=== PATIENT | female | born 1960 | race Caucasian/White ===

== ENCOUNTER → 2020-03-29 15:48 | Outpatient (CLI) | payer OTHER, SELFPAY ==
[2020-03-29 17:04] LABS: COVID19 -Nasal RAPID Negative (Negative)
== END ==
PROVIDERS: Family Provider Internal Medicine; Visit Provider Physician Assistant
DX: Z11.59 Encounter for screening for other viral diseases (principal)
CPT/HCPCS: 87635

== ENCOUNTER → 2020-07-04 12:10 | Outpatient (CLI) | payer OTHER, SELFPAY ==
[2020-07-04 12:49] LABS: Hemoglobin 13.5 g/dL (12.0-16.0); Mean Corpuscular HGB Conc 33.7 % (30-36); Platelet Count 239 X10^3/uL (150-400); Red Blood Cell Count 4.34 X10^6/uL (4.0-5.2); Red Cell Distribution Width 13.1 % (11.6-14.8); White Blood Cell Count 5.2 X10^3/uL (4.5-11.0)
[2020-07-04 14:25] LABS: Alanine Aminotransferase 20 IU/L (<35); Albumin 4.3 g/dL (3.5-5.0); Albumin Globulin Ratio 1.7 (1.0-2.8); Alkaline Phosphatase 62 U/L (38-126); Aspartate Aminotransferase 19 IU/L (14-36); BUN Creatinine Ratio 22.2 (6-22); Bilirubin Total 0.2 mg/dL (0.2-1.3); Blood Urea Nitrogen 14 mg/dL (7-17); Calcium 9.6 mg/dL (8.4-10.2); Carbon Dioxide 27 mmol/L (22-32); Chloride 103 mmol/L (98-107); Cholesterol 158 mg/dL (140-199); Estimated Glomerular Filt Rate > 60.0 mL/min (>60); Globulin 2.6 g/dL (1.7-4.1); Glucose 120 mg/dL (70-100); HDL Cholesterol 65 mg/dL (40-60); HEMOLYSIS < 15 (0-50); LDL Cholesterol Calculated 53 mg/dL (<100); Potassium 4.1 mmol/L (3.4-5.1); Sodium 138 mmol/L (137-145); Total Protein 6.9 g/dL (6.3-8.2); Triglycerides 198 mg/dL (35-150)
[2020-07-04 14:51] LABS: Thyroid Stimulating Hormone 1.55 uIU/mL (0.47-4.68)
[2020-07-04 15:14] LABS: Vitamin B12 311 pg/mL (239-931)
[2020-07-04 16:21] LABS: Microalbumin Urine Random 1.1 mg/dL (0-1.6)
[2020-07-04 16:23] LABS: Creatinine Urine Random 140.2 mg/dL; Microalbumi Creatinin Ratio Ur 7.8 ug/mg CR (<30)
== END ==
PROVIDERS: Family Provider Internal Medicine; PCP Internal Medicine; Referring Provider Internal Medicine; Visit Provider Internal Medicine
DX: Z00.00 Encounter for general adult medical examination without abnormal findings (principal); E11.9 Type 2 diabetes mellitus without complications
CPT/HCPCS: 36415; 80053; 80061; 82043; 82570; 82607; 83036; 84443; 85027

== ENCOUNTER → 2020-11-24 13:22 | Outpatient (CLI) | payer OTHER, SELFPAY ==
[2020-11-24 14:09] LABS: Hematocrit 40.6 % (36-46); Hemoglobin 13.4 g/dL (12.0-16.0); Mean Corpuscular HGB Conc 33.1 % (30-36); Mean Corpuscular Hemoglobin 30.8 PG (26-34); Mean Corpuscular Volume 93.2 fL (80-100); Platelet Count 266 X10^3/uL (150-400); Red Blood Cell Count 4.36 X10^6/uL (4.0-5.2); Red Cell Distribution Width 13.6 % (11.6-14.8); White Blood Cell Count 5.6 X10^3/uL (4.5-11.0)
[2020-11-24 14:28] LABS: BUN Creatinine Ratio 21.4 (6-22); Blood Urea Nitrogen 12 mg/dL (7-17); Carbon Dioxide 28 mmol/L (22-32); Chloride 104 mmol/L (98-107); Estimated Glomerular Filt Rate > 60.0 mL/min (>60); Glucose 125 mg/dL (70-100); HEMOLYSIS < 15 (0-50); Potassium 3.9 mmol/L (3.4-5.1); Sodium 140 mmol/L (137-145)
[2020-11-24 14:29] LABS: Hemoglobin A1C% w Est Avg Glu 5.5 % (4.0-6.0)
[2020-11-24 15:16] LABS: Vitamin B12 410 pg/mL (239-931)
[2020-11-27 12:44] LABS: Calcitonin <2.0 pg/mL (0.0-5.0)
== END ==
PROVIDERS: Family Provider Internal Medicine; PCP Internal Medicine; Referring Provider Internal Medicine; Visit Provider Internal Medicine
DX: E11.9 Type 2 diabetes mellitus without complications (principal)
CPT/HCPCS: 36415; 80048; 82308; 82607; 83036; 85027

== ENCOUNTER → 2021-01-20 11:41 | Outpatient (CLI) | payer OTHER, SELFPAY ==
[2021-01-20 13:07] LABS: Add Manual Diff / Slide Review NO; Basophils Absolute Auto 100 /uL (0-100); Basophils Percent Auto 1.2 % (0-2); Eosinophils Absolute Auto 100 /uL (0-450); Eosinophils Percent Auto 1.9 % (2-4); Hematocrit 39.8 % (36-46); Hemoglobin 13.2 g/dL (12.0-16.0); Lymphocytes Absolute Auto 1700 /uL (1100-4500); Lymphocytes Percent Auto 33.4 % (25-40); Mean Corpuscular HGB Conc 33.1 % (30-36); Mean Corpuscular Hemoglobin 30.9 PG (26-34); Mean Corpuscular Volume 93.3 fL (80-100); Monocytes Absolute Auto 400 /uL (0-900); Monocytes Percent Auto 6.9 % (3-14); Neutrophils Absolute Auto 2900 /uL (1500-7000); Neutrophils Percent Auto 56.6 % (50-75); Platelet Count 266 X10^3/uL (150-400); Red Blood Cell Count 4.27 X10^6/uL (4.0-5.2); Red Cell Distribution Width 13.1 % (11.6-14.8); White Blood Cell Count 5.1 X10^3/uL (4.5-11.0)
[2021-01-20 13:16] LABS: HEMOLYSIS < 15 (0-50); Iron 78 ug/dL (37-170)
[2021-01-20 13:22] LABS: Alanine Aminotransferase 26 IU/L (<35); Albumin 4.3 g/dL (3.5-5.0); Albumin Globulin Ratio 1.7 (1.0-2.8); Alkaline Phosphatase 54 U/L (38-126); Aspartate Aminotransferase 24 IU/L (14-36); BUN Creatinine Ratio 18.2 (6-22); Bilirubin Total 0.3 mg/dL (0.2-1.3); Blood Urea Nitrogen 10 mg/dL (7-17); Calcium 9.3 mg/dL (8.4-10.2); Carbon Dioxide 29 mmol/L (22-32); Chloride 104 mmol/L (98-107); Cholesterol 151 mg/dL (140-199); Estimated Glomerular Filt Rate > 60.0 mL/min (>60); Globulin 2.5 g/dL (1.7-4.1); Glucose 103 mg/dL (70-100); HDL Cholesterol 50 mg/dL (40-60); HEMOLYSIS < 15 (0-50); LDL Cholesterol Calculated 64 mg/dL (<100); Sodium 140 mmol/L (137-145); Total Protein 6.8 g/dL (6.3-8.2); Triglycerides 186 mg/dL (35-150)
[2021-01-20 13:24] LABS: Hemoglobin A1C% w Est Avg Glu 5.4 % (4.0-6.0)
[2021-01-20 13:32] LABS: Vitamin D 25 Hydroxy (D3) 39.4 ng/mL (30.0-100.0)
[2021-01-20 13:33] LABS: Percent Iron Saturation 26 % (15-50); Total Iron Binding Capacity 298 ug/dL (265-497); Transferrin 246 mg/dL (206-381)
[2021-01-20 13:34] LABS: Follicle Stimulating Hormone 27.6 mIU/mL
[2021-01-20 14:14] LABS: Vitamin B12 404 pg/mL (239-931)
== END ==
PROVIDERS: Family Provider Internal Medicine; PCP Internal Medicine; Referring Provider Internal Medicine; Visit Provider Internal Medicine
DX: F32.9 Major depressive disorder, single episode, unspecified (principal); E11.9 Type 2 diabetes mellitus without complications; Z78.0 Asymptomatic menopausal state
CPT/HCPCS: 36415; 80053; 80061; 82306; 82607; 83001; 83036; 83540; 83550; 85025

== ENCOUNTER → 2021-03-21 11:30 | Outpatient (CLI) | payer OTHER, SELFPAY ==
--- NOTE | 2021-03-21 11:31 | DI.MRI.S_ITS ---
BREAST MRI OF BOTH BREASTS: 03/21/2021 CLINICAL: Dense breasts. PROCEDURE: MR BREAST BI WO/W CON INDICATIONS: Dense breast TECHNIQUE: The patient was placed prone in a dedicated breast imaging coil. Precontrast axial STIR and 3D FLASH without fat saturation sequences were obtained. Both before and after bolus injection of contrast, sequential 1-minute axial 3D FLASH with fat saturation sequences for 3 time points, with subtraction images and maximum intensity projections (MIP's) generated. Delayed sagittal FLASH images with fat saturation were also obtained. Contrast: 20 cc ProHance IV contrast. Computer-aided detection, including computer algorithm analysis of MRI image data for lesion detection and characterization, pharmacokinetic analysis, with further physician review for interpretation, was performed. COMPARISON: Outside Facility, MG, MM TOMOSYNTHESIS DIAGNOSTIC BI, 02/29/2020, 11:43. Outside Facility, RG, US RIGHT BREAST, 06/15/2019, 10:45. Outside Facility, MG, MM TOMOSYNTHESIS DIAGNOSTIC BI, 06/15/2019, 10:06. Outside Facility, RG, US RIGHT BREAST, 06/06/2017, 9:48. Outside Facility, MG, MM TOMOSYNTHESIS DIAGNOSTIC BI, 06/06/2017, 9:15. Formerly [facility], MR, BILATERAL BREAST W FINDINGS: Image quality: Excellent. There is minimal background parenchymal enhancement. Right breast: No mass or suspicious enhancement. A few T2 hyperintense cysts. Left breast: No mass or suspicious enhancement. A few T2 hyperintense cysts. Miscellaneous: No enlarged lymph nodes. IMPRESSION: NEGATIVE No mass or suspicious enhancement. A few small T2 hyperintense cysts. BIRADS 2 Patient is due for screening mammogram. (last mammogram 02/29/2020). COMMENT: The imaging literature indicates that a negative contrast breast MRI examination has a high sensitivity and a moderate specificity for detecting and excluding invasive carcinomas to a detection threshold of 3-5 mm; nonetheless, appropriate clinical and mammographic follow-up are recommended. MRI is not sensitive for detecting DCIS (ductal carcinoma in situ) and may not detect large invasive neoplasms that show only minimal enhancement such as mucinous carcinoma. If there are suspicious calcifications or clinically worrisome palpable masses, then biopsy should still be considered. Invasive neoplasms can be hidden by co-existent and benign enhancement caused by mastitis, hormone therapy effects, radiation therapy, , and recent biopsy or surgery. False positive examinations can occur in a number of circumstances, including breasts that have recently been subject to invasive procedures and those that contain atypical ductal hyperplasia, hormonally stimulated glandular tissue, fat necrosis, or radial scars. Dictated by: Duncan Hassan M.D. on 03/21/2021 at 16:34 This exam was interpreted at Station ID: [id number]. Electronically Signed By: Duncan Hassan M.D. slc/:03/21/2021 17:07:10 Entry: - 03/22/2021 12:47:16 copy to: [facility] ACR BI-RADS Category 1: Negative [id number]
== END ==
PROVIDERS: Family Provider Internal Medicine; PCP Internal Medicine; Referring Provider Obstetrics & Gynecology; Visit Provider Obstetrics & Gynecology
DX: R92.2 Inconclusive mammogram (principal)
CPT/HCPCS: 77049; A9579

== ENCOUNTER → 2021-04-25 12:34 | Outpatient (CLI) | payer OTHER, SELFPAY ==
[2021-04-25 12:56] LABS: COVID19 -Nasal RAPID Negative (Negative)
== END ==
PROVIDERS: Family Provider Internal Medicine; PCP Internal Medicine; Referring Provider Physician Assistant; Visit Provider Physician Assistant
DX: R05.9 Cough, unspecified (principal); R51.9 Headache, unspecified; J02.9 Acute pharyngitis, unspecified
CPT/HCPCS: 87635

== ENCOUNTER → 2021-08-27 12:42 | Outpatient (CLI) | payer OTHER, SELFPAY ==
[2021-08-27 13:07] LABS: Hematocrit 37.6 % (36-46); Hemoglobin 12.9 g/dL (12.0-16.0); Mean Corpuscular HGB Conc 34.2 % (30-36); Mean Corpuscular Volume 93.5 fL (80-100); Platelet Count 237 X10^3/uL (150-400); Red Blood Cell Count 4.02 X10^6/uL (4.0-5.2); Red Cell Distribution Width 13.4 % (11.6-14.8); White Blood Cell Count 4.6 X10^3/uL (4.5-11.0)
[2021-08-27 13:14] LABS: Hemoglobin A1C% w Est Avg Glu 5.5 % (4.0-6.0)
[2021-08-27 13:17] LABS: Alanine Aminotransferase 24 IU/L (<35); Albumin 4.6 g/dL (3.5-5.0); Albumin Globulin Ratio 1.9 (1.0-2.8); Alkaline Phosphatase 49 U/L (38-126); Aspartate Aminotransferase 24 IU/L (14-36); BUN Creatinine Ratio 16.4 (6-22); Bilirubin Total 0.3 mg/dL (0.2-1.3); Blood Urea Nitrogen 10 mg/dL (7-17); Calcium 9.4 mg/dL (8.4-10.2); Carbon Dioxide 31 mmol/L (22-32); Chloride 104 mmol/L (98-107); Cholesterol 152 mg/dL (140-199); Estimated Glomerular Filt Rate > 60 mL/min (>60); Globulin 2.4 g/dL (1.7-4.1); Glucose 93 mg/dL (70-100); HDL Cholesterol 67 mg/dL (40-60); HEMOLYSIS < 15 (0-50); LDL Cholesterol Calculated 62 mg/dL (<100); Potassium 3.8 mmol/L (3.4-5.1); Sodium 141 mmol/L (137-145); Triglycerides 113 mg/dL (35-150)
[2021-08-27 15:26] LABS: Creatinine Urine Random 46.9 mg/dL
[2021-08-27 15:39] LABS: Microalbumin Urine Random < 0.6 mg/dL (0-1.6)
== END ==
PROVIDERS: Family Provider Internal Medicine; PCP Internal Medicine; Referring Provider Internal Medicine; Visit Provider Internal Medicine
DX: E11.9 Type 2 diabetes mellitus without complications (principal)
CPT/HCPCS: 36415; 80053; 80061; 82043; 82570; 83036; 85027

== ENCOUNTER 2021-09-18 07:04 | Emergency (ER) | payer OTHER, SELFPAY ==
[2021-09-18] VITALS (11 sets, daily range): BP systolic 118–132; BP diastolic 58–75; PULSE 97–119; RESP 17; TEMP 36.5; O2SAT 95–100; BMI 22.3
[2021-09-18 07:38] LABS: Add Manual Diff / Slide Review NO; Basophils Absolute Auto 0 /uL (0-100); Basophils Percent Auto 0.2 % (0-2); Eosinophils Absolute Auto 100 /uL (0-450); Eosinophils Percent Auto 0.6 % (2-4); Hematocrit 43.1 % (36-46); Hemoglobin 14.6 g/dL (12.0-16.0); Lymphocytes Absolute Auto 800 /uL (1100-4500); Lymphocytes Percent Auto 9.2 % (25-40); Mean Corpuscular HGB Conc 33.8 % (30-36); Mean Corpuscular Hemoglobin 31.6 PG (26-34); Mean Corpuscular Volume 93.4 fL (80-100); Monocytes Absolute Auto 200 /uL (0-900); Monocytes Percent Auto 2.6 % (3-14); Neutrophils Absolute Auto 7200 /uL (1500-7000); Neutrophils Percent Auto 87.4 % (50-75); Platelet Count 219 X10^3/uL (150-400); Red Blood Cell Count 4.62 X10^6/uL (4.0-5.2); Red Cell Distribution Width 13.1 % (11.6-14.8); White Blood Cell Count 8.2 X10^3/uL (4.5-11.0)
[2021-09-18] MEDS: SODIUM CHLORIDE 0.9% 1,000 ML 1000 ML IV ×2 (07:40→08:14)
[2021-09-18 07:43] LABS: Alanine Aminotransferase 21 IU/L (<35); Albumin 4.8 g/dL (3.5-5.0); Albumin Globulin Ratio 1.9 (1.0-2.8); Alkaline Phosphatase 58 U/L (38-126); Aspartate Aminotransferase 20 IU/L (14-36); BUN Creatinine Ratio 28.3 (6-22); Bilirubin Total 0.7 mg/dL (0.2-1.3); Blood Urea Nitrogen 17 mg/dL (7-17); Calcium 8.9 mg/dL (8.4-10.2); Carbon Dioxide 24 mmol/L (22-32); Chloride 105 mmol/L (98-107); Estimated Glomerular Filt Rate > 60 mL/min (>60); Globulin 2.5 g/dL (1.7-4.1); Glucose 175 mg/dL (70-100); HEMOLYSIS < 15 (0-50); Lipase 818 U/L (23-300); Potassium 3.7 mmol/L (3.4-5.1); Sodium 140 mmol/L (137-145); Total Protein 7.3 g/dL (6.3-8.2)
--- NOTE | 2021-09-18 07:56 | ED.ABDPAIN ---
HPI - Abdominal Pain General Chief Complaint: Abdominal Pain Stated Complaint: abd pain, vomiting. on & off for 6 months Time Seen by Provider: 09/18/21 07:28 Source: patient Mode of arrival: Ambulatory History of Present Illness HPI narrative: Patient is a 60-year-old female history of hypothyroid diabetes hypertension presenting today with nausea vomiting. She states that she has been on Semalutide for diabetes control for about 14 months. Over the last 3-6 months she started having episodes of abdominal pain with vomiting. She thinks it might be pancreatitis related to side effect of this medication. She has had low-grade fevers 100 off and on as well. She says nothing that sticks. She states symptoms usually go away however last night she has been vomiting since 1:30 a.m. and is having pain. She has some acid reflux and burning in her chest but no chest pain. No known coronary artery disease. Related Data Home Medications Medication Instructions Recorded Confirmed cholecalciferol (vitamin D3) 50 4,000 iu PO Q DAY #0 01/29/11 04/25/21 mcg (2,000 unit) capsule (Vitamin D3) cyanocobalamin (vitamin B-12) 500 500 mcg PO QDAY #0 07/09/16 04/25/21 mcg tablet (Vitamin B-12) metformin 1,000 mg tablet 1,000 mg PO BID 07/01/18 09/18/21 semaglutide 7 mg tablet (Rybelsus) 7 mg PO DAILY 11/06/20 09/18/21 Previous Rx's Medication Instructions Recorded levothyroxine 50 mcg tablet 50 mcg PO QDAY #90 tab 05/30/16 (Synthroid) albuterol sulfate 90 mcg/actuation 1 - 2 puff INH Q4HP PRN #1 ea 08/08/16 aerosol inhaler (Ventolin HFA) trazodone 100 mg tablet 200 mg PO HS #60 tab 12/09/16 atorvastatin 40 mg tablet 40 mg PO QDAY #90 tab 02/25/17 Lancet: Device units INTRADERMAL BID #1 02/26/17 Lancets units INTRADERMAL BID #60 02/26/17 lisinopril 20 mg tablet 20 mg PO QDAY #30 tab 04/10/17 estradiol-norethindrone acet 0.5 1 tab PO Q DAY #1 pac 04/23/18 mg-0.1 mg tablet (Activella) Glucose: Home Monitoring Kit kit INTRADERMAL BID #1 07/06/18 hydrocodone 5 mg-acetaminophen 325 1 tab PO Q6H PRN #10 tab 09/18/21 mg tablet ondansetron 4 mg disintegrating 4 mg PO Q8H PRN #10 tab 09/18/21 tablet Allergies Allergy/AdvReac Type Severity Reaction Status Date / Time latex Allergy Mild Rash Verified 09/18/21 07:42 Penicillins [PENICILLINS] Allergy Mild RASH Verified 09/18/21 07:42 adhesive tape Allergy Unknown Rash Verified 09/18/21 07:42 Review of Systems Review of Systems Narrative: GENERAL: Denies chills, fatigue, malaise, fever, sweats, travel HEENT: Denies sinus pain, ear pain, sore throat, difficulty swallowing, neck pain RESPIRATORY: Denies dyspnea, cough, wheezing, hemoptysis, sputum. CARDIOVASCULAR: Denies chest pain, palpitations, orthopnea, edema GASTROINTESTINAL: See HPI : Denies dysuria, frequency, incontinence, hematuria, urinary retention, flank pain. MUSCULOSKELETAL: Denies weakness, joint pain, or bony pain SKIN: No rash, no erythema, no pruritus NEUROLOGIC: Denies weakness, dizziness, headache, numbness, change in speech, confusion PSYCHIATRIC: No concerning psychosocial issues. 12 point review of systems is negative except for those stated above and HPI Patient History Surgical History History of third molar tooth extraction Status post breast biopsy Status post colonoscopy Status post endoscopy Status post ovarian cystectomy Social History Smoking Status: Never smoker Smoking Status: Never smoker alcohol intake frequency: holidays/special occasions only Substance Use Type: does not use Exam Initial Vital Signs Initial Vital Signs: Vital Signs Temperature 97.7 F 09/18/21 07:21 Pulse Rate 119 H 09/18/21 07:21 Respiratory Rate 17 09/18/21 07:21 Blood Pressure 125/70 09/18/21 07:21 Pulse Oximetry 99 09/18/21 07:21 GENERAL: Alert 60-year-old female appears to not feel well HEENT: Head atraumatic,EOMI, pupils reactive, face symmetric, moist mucous membranes CARDIOVASCULAR: Regular rate and rhythm without murmurs, rubs or gallops. RESPIRATORY: Breath sounds equal bilaterally, no wheezes rales or rhonchi. ABDOMEN: Soft, nontender. Normoactive bowel sounds all 4 quadrants. No guarding or rebound. EXTREMITIES: Normal range of motion, no clubbing or edema. Neurovascularly intact NEUROLOGICAL: Alert and oriented x4.Normal gait and speech. SKIN: Warm, dry, no laceration, no petechiae, no rashes or lesions. Course Orders Ordered: ED Orders 09/18/21 07:20 COVID19 -Nasal RAPID/Pre-Proc Stat 09/18/21 07:25 Complete Blood Count AUTO DIFF Stat Comprehensive Metabolic Panel Stat Lipase Stat Troponin & CK Cardiac Panel Stat 09/18/21 07:47 EKG-12 Lead Stat 09/18/21 08:04 US abdomen limited Stat Discontinued Medications Sodium Chloride (Normal Saline 0.9%) 1,000 mls @ 1,000 mls/hr IV BOLUS ONE Stop: 09/18/21 08:29 Last Infusion: 09/18/21 09:02 Dose: 0 mls/hr Documented by: Admin: 09/18/21 07:40 Dose: 1,000 mls/hr Documented by: KATHARINA Sodium Chloride (Normal Saline 0.9%) 1,000 mls @ 1,000 mls/hr IV BOLUS ONE Stop: 09/18/21 08:55 Last Infusion: 09/18/21 11:12 Dose: 0 mls/hr Documented by: Admin: 09/18/21 08:14 Dose: 1,000 mls/hr Documented by: KATHARINA Morphine Sulfate (Morphine 2 Mg/Ml Inj) 2 mg IV Q5MIN PRN PRN Reason: Chest Pain Last Admin: 09/18/21 08:13 Dose: 2 mg Documented by: KATHARINA Ondansetron HCl (Ondansetron 4 Mg/2 Ml Inj) 4 mg IV NOW ONE Stop: 09/18/21 07:31 Last Admin: 09/18/21 08:13 Dose: 4 mg Documented by: KATHARINA Pantoprazole Sodium (Pantoprazole 40 Mg Vial) 40 mg IV NOW ONE Stop: 09/18/21 07:58 Last Admin: 09/18/21 08:14 Dose: 40 mg Documented by: KATHARINA Vital Signs Vital signs: Vital Signs - 8 hr 09/18/21 07:21 09/18/21 07:25 09/18/21 07:30 Temperature 97.7 F Pulse Rate 119 H 109 H 104 H Respiratory Rate 17 Blood Pressure 125/70 123/68 Pulse Oximetry 99 98 100 09/18/21 08:00 09/18/21 08:30 09/18/21 09:00 Temperature Pulse Rate 111 H 102 H 100 H Respiratory Rate Blood Pressure 124/65 132/75 118/58 L Pulse Oximetry 98 95 95 09/18/21 09:34 09/18/21 09:35 09/18/21 10:00 Temperature Pulse Rate 97 H 98 H 101 H Respiratory Rate Blood Pressure 124/59 L 126/63 Pulse Oximetry 97 98 97 09/18/21 10:30 09/18/21 11:00 Temperature Pulse Rate 107 H Respiratory Rate Blood Pressure 126/62 125/63 Pulse Oximetry 96 MDM - Abdominal Pain Lab Data Result diagrams: 09/18/21 07:25 09/18/21 07:25 Labs: Lab Results 09/18/21 09/18/21 09/18/21 Range/Units 07:20 07:25 07:25 WBC 8.2 (4.5-11.0) X10^3/uL RBC 4.62 (4.0-5.2) X10^6/uL Hgb 14.6 (12.0-16.0) g/dL Hct 43.1 (36-46) % MCV 93.4 (80-100) fL MCH 31.6 (26-34) PG MCHC 33.8 (30-36) % RDW 13.1 (11.6-14.8) % Plt Count 219 (150-400) X10^3/uL Neut % (Auto) 87.4 H (50-75) % Lymph % (Auto) 9.2 L (25-40) % [place] % (Auto) 2.6 L (3-14) % Eos % (Auto) 0.6 L (2-4) % Baso % (Auto) 0.2 (0-2) % Neut # (Auto) 7200 H (7810-8933) /uL Lymph # (Auto) 800 L (0150-1573) /uL [place] # (Auto) 200 (0-900) /uL Eos # (Auto) 100 (0-450) /uL Baso # (Auto) 0 (0-100) /uL Sodium 140 (137-145) mmol/L Potassium 3.7 (3.4-5.1) mmol/L Chloride 105 (98-107) mmol/L Carbon Dioxide 24 (22-32) mmol/L BUN 17 (7-17) mg/dL Creatinine 0.60 (0.52-1.04) mg/dL Estimated GFR > 60 (>60) mL/min BUN/Creatinine Ratio 28.3 H (6-22) Glucose 175 H (70-100) mg/dL Calcium 8.9 (8.4-10.2) mg/dL Total Bilirubin 0.7 (0.2-1.3) mg/dL AST 20 (14-36) IU/L ALT 21 (<35) IU/L Alkaline Phosphatase 58 (38-126) U/L Total Creatine Kinase (30-135) U/L CK-MB (CK-2) CK-MB (CK-2) Rel Index Troponin I (0.01-0.034) ng/mL Total Protein 7.3 (6.3-8.2) g/dL Albumin 4.8 (3.5-5.0) g/dL Globulin 2.5 (1.7-4.1) g/dL Albumin/Globulin Ratio 1.9 (1.0-2.8) Lipase 818 H (23-300) U/L SARS-CoV-2 (PCR) Negative (Negative) 09/18/21 Range/Units 07:25 WBC (4.5-11.0) X10^3/uL RBC (4.0-5.2) X10^6/uL Hgb (12.0-16.0) g/dL Hct (36-46) % MCV (80-100) fL MCH (26-34) PG MCHC (30-36) % RDW (11.6-14.8) % Plt Count (150-400) X10^3/uL Neut % (Auto) (50-75) % Lymph % (Auto) (25-40) % [place] % (Auto) (3-14) % Eos % (Auto) (2-4) % Baso % (Auto) (0-2) % Neut # (Auto) (4779-6609) /uL Lymph # (Auto) (1053-0091) /uL [place] # (Auto) (0-900) /uL Eos # (Auto) (0-450) /uL Baso # (Auto) (0-100) /uL Sodium (137-145) mmol/L Potassium (3.4-5.1) mmol/L Chloride (98-107) mmol/L Carbon Dioxide (22-32) mmol/L BUN (7-17) mg/dL Creatinine (0.52-1.04) mg/dL Estimated GFR (>60) mL/min BUN/Creatinine Ratio (6-22) Glucose (70-100) mg/dL Calcium (8.4-10.2) mg/dL Total Bilirubin (0.2-1.3) mg/dL AST (14-36) IU/L ALT (<35) IU/L Alkaline Phosphatase (38-126) U/L Total Creatine Kinase 56 (30-135) U/L CK-MB (CK-2) TNP CK-MB (CK-2) Rel Index TNP Troponin I < 0.012 (0.01-0.034) ng/mL Total Protein (6.3-8.2) g/dL Albumin (3.5-5.0) g/dL Globulin (1.7-4.1) g/dL Albumin/Globulin Ratio (1.0-2.8) Lipase (23-300) U/L SARS-CoV-2 (PCR) (Negative) Imaging Data US - abdomen: Radiologist's Impression: Ultrasound Report Signed Patient: Gaby Greer MR#: [id number] : 1960 Acct:[id number] Age/Sex: 60 / F Date of Service: 09/18/21 Loc: ED Accession Number: [id number] ?? Procedure: US abdomen limited Ordering Provider: Jolynn Olvera D.O. PROCEDURE:? US ABDOMEN LIMITED ? INDICATIONS:? RUQ PAIN ? TECHNIQUE:? Real-time scanning was performed of the abdominal and retroperitoneal organs, with image documentation.? ? COMPARISON:? None. ? FINDINGS:? ? Liver:? Liver is normal in size and homogeneous but has increased echogenicity consistent with hepatic steatosis.? There is antegrade flow in the main portal vein.? The liver has no intrahepatic biliary ductal dilatation. ? Gallbladder:? No wall thickening or pericholecystic fluid.? ? Biliary ducts:? Intrahepatic bile ducts are non-dilated.? Extrahepatic bile duct caliber measures 7.1 mm.? Normal is 6-7 mm or less in diameter, or 10 mm or less post-cholecystectomy.? ? Pancreas:? Visualized portions of the pancreas are sonographically normal.? ? Kidneys:? The right kidney has a normal size.? There is a 2.0 x 2.0 x 2.5 centimeter cyst within the central right kidney. ? Iliacs:? Proximal common iliac arteries are normal in caliber at less than 2.5 cm.? ? IVC:? Intrahepatic inferior vena cava is patent.? ? Miscellaneous:? No free abdominal fluid.? ? ? IMPRESSION:? 1. No acute ultrasound abnormality. 2. The common bile duct is slightly dilated, nonspecific in the absence of stones or other evidence of cholecystitis. 3. Simple right renal cyst.? ? Dictated by: Papi Matthews M.D. on 09/18/2021 at 9:05 ? ? ECG Data Interpretation: Artifact noted however sinus tachycardia rate 109 no significant or obvious ST changes--3 EKGs were taken in a 9 minute time frame all have significant artifact but looks similar MDM Narrative Medical decision making narrative: The patient is having episodes of abdominal pain and nausea today seems to be lasting longer than normal. Lipase today is 800. She is tolerating fluids. This is likely side effect of her diabetes medication. His his pain is much better after medication as well. At this time she does not meet admission criteria. She is tolerating fluids his. We discussed home management and when to return to the ER. I also discussed with her to talk with her primary care provider about changing medications. Discharge Plan Departure Patient Disposition: Home Clinical Impression: Adverse drug reaction, Acute pancreatitis Instructions: DI for Pancreatitis Activity Restrictions/Additional Instructions: *You have been diagnosed with drug reaction, pancreatitis *What to do: You have a very mild case of pancreatitis likely secondary to your diabetes medication. I would discuss with your primary care provider alternative medications. Stay on a clear liquid diet with Pedialyte, Gatorade like products for the next 24-48 hours. May increase diet as tolerated. *Continue to take medications as directed--> SENT TO [facility] [place] Zofran 4 mg every 8 hours if needed for nausea vomiting [place] 1 tablet every 6 hours if needed for severe *Follow up with your primary care provider in 2-3 days or call [phone] *Return to ER if you should have increasing pain, inability to tolerate fluids, fever or any new, worsening or concerning symptoms CONTROLLED SUBSTANCE DISCHARGE (Narcotoic/benzodiazepine/Flexeril/Phenergan) 1. You have been prescribed narcotic medications, it does have acetaminophen/Tylenol/paracetamol in it, DO NOT TAKE MORE THAN 4,00mg in 24 hours of Tylenol. TRAMADOL DOES NOT CONTAIN TYLENOL 2. Please understand that we cannot provide further refills of narcotics, benzodiazepines or controlled substances through the ED and her pain management will need to be through your provider. 3. While on these medications you cannot drive or operate heavy machinery. 4. You cannot sign legal documents or perform any duties such as this. 5. As long as you're taking opiate pain medications he should also be taking a stool softener such as Colace, Dulcolax, MiraLAX or prune juice, to help avoid constipation. Prescriptions: New hydrocodone-acetaminophen 5-325 mg tablet 1 tab PO Q6H PRN (Reason: pain) Qty: 10 0RF ondansetron 4 mg tablet,disintegrating 4 mg PO Q8H PRN (Reason: nausea and vomiting) Qty: 10 0RF No Action cholecalciferol (vitamin D3) [Vitamin D3] 2,000 UNIT capsule 4,000 iu PO Q DAY Qty: 0 0RF levothyroxine [Synthroid] 50 MCG tablet 50 mcg PO QDAY Qty: 90 3RF cyanocobalamin (vitamin B-12) [Vitamin B-12] 500 MCG tablet 500 mcg PO QDAY Qty: 0 0RF albuterol sulfate [Ventolin HFA] 90 MCG/PUFF HFA aerosol inhaler 1 - 2 puff INH Q4HP PRNQty: 1 2RF trazodone 100 MG tablet 200 mg PO HS Qty: 60 6RF atorvastatin 40 MG tablet 40 mg PO QDAY Qty: 90 3RF Lancet: Device Intradermal BID Qty: 1 0RF Lancets Intradermal BID Qty: 60 6RF lisinopril 20 MG tablet 20 mg PO QDAY Qty: 30 1RF estradiol-norethindrone acet [Activella] 0.5 MG/0.1 MG tablet 1 tab PO Q DAY Qty: 1 6RF Glucose: Home Monitoring Kit Intradermal BID Qty: 1 0RF metformin 1,000 mg tablet 1,000 mg PO BID 0RF Rybelsus 7 mg tablet 7 mg PO DAILY 0RF Referrals: Ashly Colorado MD [Primary Care Provider] -
--- NOTE | 2021-09-18 08:04 | DI.US.S_ITS ---
PROCEDURE: US ABDOMEN LIMITED INDICATIONS: RUQ PAIN TECHNIQUE: Real-time scanning was performed of the abdominal and retroperitoneal organs, with image documentation. COMPARISON: None. FINDINGS: Liver: Liver is normal in size and homogeneous but has increased echogenicity consistent with hepatic steatosis. There is antegrade flow in the main portal vein. The liver has no intrahepatic biliary ductal dilatation. Gallbladder: No wall thickening or pericholecystic fluid. Biliary ducts: Intrahepatic bile ducts are non-dilated. Extrahepatic bile duct caliber measures 7.1 mm. Normal is 6-7 mm or less in diameter, or 10 mm or less post-cholecystectomy. Pancreas: Visualized portions of the pancreas are sonographically normal. Kidneys: The right kidney has a normal size. There is a 2.0 x 2.0 x 2.5 centimeter cyst within the central right kidney. Iliacs: Proximal common iliac arteries are normal in caliber at less than 2.5 cm. IVC: Intrahepatic inferior vena cava is patent. Miscellaneous: No free abdominal fluid. IMPRESSION: 1. No acute ultrasound abnormality. 2. The common bile duct is slightly dilated, nonspecific in the absence of stones or other evidence of cholecystitis. 3. Simple right renal cyst. Dictated by: Papi Matthews M.D. on 09/18/2021 at 9:05 Approved by: Papi Matthews M.D. on 09/18/2021 at 9:08
[2021-09-18] MEDS: ONDANSETRON 4 MG/2 ML INJ IV (08:13)
[2021-09-18] MEDS: MORPHINE 2 MG/ML INJ IV (08:13)
[2021-09-18] MEDS: PANTOPRAZOLE 40 MG VIAL IV (08:14)
[2021-09-18 08:19] LABS: Creatine Kinase 56 U/L (30-135)
[2021-09-18 08:29] LABS: COVID19 -Nasal RAPID Negative (Negative)
[2021-09-18 08:32] LABS: Troponin I < 0.012 ng/mL (0.01-0.034)
== END 2021-09-18 11:18 | disposition home or self-care (01) ==
PROVIDERS: Emergency Provider Emergency Medicine; Family Provider Internal Medicine; PCP Internal Medicine
DX: K85.90 Acute pancreatitis without necrosis or infection, unspecified (principal); T50.905A Adverse effect of unspecified drugs, medicaments and biological substances, initial encounter; R10.9 Unspecified abdominal pain; R50.9 Fever, unspecified; R00.0 Tachycardia, unspecified; Z20.822 Contact with and (suspected) exposure to COVID-19
CPT/HCPCS: 36415; 76705; 80053; 82550; 83690; 84484; 85025; 87635; 93005; 96361; 96374; 96375; 99284; C9803; C9113; J2270; J2405

== ENCOUNTER → 2021-09-25 08:22 | Outpatient (CLI) | payer OTHER, SELFPAY ==
--- NOTE | 2021-09-25 | DI.MG.S_ITS ---
BILATERAL DIGITAL SCREENING MAMMOGRAM 3D/2D WITH CAD: 09/25/2021 CLINICAL: Routine screening. Family history of breast cancer. Comparison is made to exams dated: 03/21/2021 breast MRI - [facility], 02/28/2021 mammogram, 02/28/2021 ultrasound, 06/15/2019 ultrasound, and 06/15/2019 mammogram - [facility]. There are scattered fibroglandular elements in both breasts. Current study was also evaluated with a Computer Aided Detection (CAD) system. There are benign post operative findings in the right breast. No significant masses, calcifications, or other findings are seen in either breast. There has been no significant interval change. IMPRESSION: BENIGN There is no mammographic evidence of malignancy. A 1 year screening mammogram is recommended. This exam was interpreted at Station ID: [id number]. NOTE: For mammograms, a report in lay terms will be sent to the patient. Approximately 15% of breast malignancies will not be visualized mammographically. In the management of a palpable breast mass, a negative mammogram must not discourage biopsy of a clinically suspicious lesion. Electronically Signed By: Roxi brooks/brittni:09/25/2021 09:42:32 copy to: [facility] letter sent: Normal Exam ACR BI-RADS Category 2: Benign Finding(s) 3342F
== END ==
PROVIDERS: Family Provider Internal Medicine; PCP Internal Medicine; Referring Provider Internal Medicine; Visit Provider Internal Medicine
DX: Z12.31 Encounter for screening mammogram for malignant neoplasm of breast (principal); Z80.3 Family history of malignant neoplasm of breast
CPT/HCPCS: 77063; 77067

== ENCOUNTER → 2022-08-07 07:17 | Outpatient (CLI) | payer OTHER, SELFPAY ==
[2022-08-07 08:01] LABS: Hematocrit 39.3 % (36-46); Hemoglobin 13.5 g/dL (12.0-16.0); Mean Corpuscular HGB Conc 34.4 % (30-36); Mean Corpuscular Hemoglobin 31.7 PG (26-34); Platelet Count 239 X10^3/uL (150-400); Red Blood Cell Count 4.27 X10^6/uL (4.0-5.2); Red Cell Distribution Width 13.2 % (11.6-14.8); White Blood Cell Count 4.6 X10^3/uL (4.5-11.0)
[2022-08-07 08:22] LABS: Alanine Aminotransferase 28 IU/L (<35); Albumin 4.3 g/dL (3.5-5.0); Albumin Globulin Ratio 1.6 (1.0-2.8); Alkaline Phosphatase 45 U/L (38-126); Aspartate Aminotransferase 23 IU/L (14-36); BUN Creatinine Ratio 23.6 (6-22); Bilirubin Total 0.4 mg/dL (0.2-1.3); Blood Urea Nitrogen 13 mg/dL (7-17); Carbon Dioxide 30 mmol/L (22-32); Chloride 102 mmol/L (98-107); Cholesterol 165 mg/dL (140-199); Estimated Glomerular Filt Rate > 60 mL/min (>60); Globulin 2.7 g/dL (1.7-4.1); Glucose 92 mg/dL (70-100); HDL Cholesterol 65 mg/dL (40-60); HEMOLYSIS < 15 (0-50); LDL Cholesterol Calculated 81 mg/dL (<100); Potassium 3.5 mmol/L (3.4-5.1); Sodium 139 mmol/L (137-145); Triglycerides 94 mg/dL (35-150)
[2022-08-07 08:28] LABS: Creatinine Urine Random 119.5 mg/dL
[2022-08-07 08:33] LABS: Microalbumi Creatinin Ratio Ur 24.2 ug/mg CR (<30); Microalbumin Urine Random 2.9 mg/dL (0-1.6)
[2022-08-07 09:10] LABS: Vitamin B12 463 pg/mL (239-931)
[2022-08-08 08:09] LABS: Labcorp Hemoglobin (Hb) A1c 5.6 % (4.8-5.6)
== END ==
PROVIDERS: Family Provider Internal Medicine; PCP Internal Medicine; Referring Provider Internal Medicine; Visit Provider Internal Medicine
DX: E11.9 Type 2 diabetes mellitus without complications (principal)
CPT/HCPCS: 36415; 80053; 80061; 82043; 82570; 82607; 83036; 85027

== ENCOUNTER → 2022-09-27 12:45 | Outpatient (CLI) | payer OTHER, SELFPAY ==
--- NOTE | 2022-09-27 | DI.MG.S_ITS ---
BILATERAL DIGITAL SCREENING MAMMOGRAM 3D/2D WITH CAD: 09/27/2022 CLINICAL: Routine screening. Family history of breast cancer. Comparison is made to exams dated: 09/25/2021 mammogram - [facility], 02/28/2021 mammogram, 06/15/2019 mammogram - [facility], and 06/06/2017 mammogram - [facility]. There are scattered areas of fibroglandular density in both breasts (category b / 25%-50% glandular tissue). Current study was also evaluated with a Computer Aided Detection (CAD) system. There are benign post operative findings and biopsy clip in the right breast. No significant masses, calcifications, or other findings are seen in either breast. There has been no significant interval change. IMPRESSION: BENIGN There is no mammographic evidence of malignancy. A 1 year screening mammogram is recommended. Based on Tyrer-Cuzick model (a risk assessment model), the patient's lifetime risk is 29.6% and her 10 year risk is 12.5%. If a patient has an elevated risk, a more comprehensive evaluation should be considered and/or a referral to a genetic counselor. The [place] [employer], [place], and NCCN Guidelines advise the consideration of Breast MRI as an adjunct to screening mammography in patients whose Lifetime risk to develop breast cancer is 20% or higher. This exam was interpreted at Station ID: [id number]. NOTE: For mammograms, a report in lay terms will be sent to the patient. Approximately 15% of breast malignancies will not be visualized mammographically. In the management of a palpable breast mass, a negative mammogram must not discourage biopsy of a clinically suspicious lesion. Electronically Signed By: Francisco mullins/brittni:09/27/2022 14:17:59 copy to: [facility] letter sent: Normal Exam ACR BI-RADS Category 2: Benign Finding(s) 3342F
== END ==
PROVIDERS: Family Provider Internal Medicine; PCP Internal Medicine; Referring Provider Internal Medicine; Visit Provider Internal Medicine
DX: Z12.31 Encounter for screening mammogram for malignant neoplasm of breast (principal); Z80.3 Family history of malignant neoplasm of breast
CPT/HCPCS: 77063; 77067

== ENCOUNTER → 2022-10-08 19:01 | Outpatient (CLI) | payer OTHER, SELFPAY | PROVIDERS: Family Provider Internal Medicine; PCP Internal Medicine; Visit Provider Physician Assistant | DX: J02.9 Acute pharyngitis, unspecified (principal) | CPT/HCPCS: 87070 ==

== ENCOUNTER → 2022-11-08 11:14 | Outpatient (CLI) | payer OTHER, SELFPAY ==
[2022-11-08 12:41] LABS: Alanine Aminotransferase 29 IU/L (<35); Albumin 4.5 g/dL (3.5-5.0); Albumin Globulin Ratio 1.8 (1.0-2.8); Alkaline Phosphatase 49 U/L (38-126); Aspartate Aminotransferase 23 IU/L (14-36); Bilirubin Total 0.3 mg/dL (0.2-1.3); Blood Urea Nitrogen 13 mg/dL (7-17); Calcium 9.8 mg/dL (8.4-10.2); Carbon Dioxide 29 mmol/L (22-32); Chloride 99 mmol/L (98-107); Estimated Glomerular Filt Rate > 60 mL/min (>60); Globulin 2.5 g/dL (1.7-4.1); Glucose 102 mg/dL (70-100); HEMOLYSIS < 15 (0-50); Potassium 4.7 mmol/L (3.4-5.1); Sodium 136 mmol/L (137-145)
[2022-11-09 04:09] LABS: Labcorp Hemoglobin (Hb) A1c 5.9 % (4.8-5.6)
== END ==
PROVIDERS: Family Provider Internal Medicine; PCP Internal Medicine; Referring Provider Internal Medicine; Visit Provider Internal Medicine
DX: E11.9 Type 2 diabetes mellitus without complications (principal)
CPT/HCPCS: 36415; 80053; 83036

== ENCOUNTER → 2023-02-20 13:44 | Outpatient (CLI) | payer OTHER, SELFPAY ==
--- NOTE | 2023-02-20 | DI.MRI.S_ITS ---
PROCEDURE: MR LUMBAR SPINE WO CON INDICATIONS: Spinal stenosis, lumbar region with neurogenic cla TECHNIQUE: Noncontrast sagittal T1 spin echo and T2 fast echo, sagittal STIR, and T2 fast spin echo through the lumbar spine. In cases with scoliosis, additional coronal T2 fast spin echo may be performed. COMPARISON: None. FINDINGS: Image quality: Excellent. Alignment and Curvature: There is normal bony alignment. Bone Marrow: Marrow is of normal overall signal. No acute vertebral body compression fractures. Spinal Cord: Conus medullaris terminates at the L1-L2 level. Visualized cord demonstrates normal signal and size. Paraspinous Soft Tissues: No paravertebral masses. Right renal simple appearing cyst. T12-L1: No central canal or neural foraminal stenosis. L1-L2: Disc desiccation with minimal posterior disc bulge. Mild facet arthropathy. No central canal or neural foraminal stenosis. L2-L3: Disc desiccation with small posterior disc bulge. Facet arthropathy. No central canal or neural foraminal stenosis. L3-L4: Disc desiccation with minimal posterior disc bulge. Facet arthropathy and thickened ligamentum flavum. No central canal or neural foraminal stenosis. L4-L5: Disc desiccation height loss with small posterior disc bulge. Facet arthropathy and thickened ligamentum flavum. Mild narrowing of the lateral recesses. No central canal stenosis. Mild bilateral neural foraminal stenosis. L5-S1: Disc desiccation height loss with mild diffuse disc bulge and small superimposed central disc protrusion. Facet arthropathy. No central canal stenosis. Moderate right and mild left neural foraminal stenosis. IMPRESSION: Multilevel degenerative changes of the lumbar spine. There is no significant central canal stenosis. Moderate right neural foraminal stenosis at L5-S1. Additional mild neural foraminal stenosis of the lower lumbar spine as described above. Dictated by: Too Chamorro M.D. on 02/20/2023 at 14:55 Approved by: Too Chamorro M.D. on 02/20/2023 at 14:58
== END ==
PROVIDERS: Family Provider Internal Medicine; PCP Internal Medicine; Referring Provider Orthopaedic Surgery Orthopaedic Surgery of the Spine; Visit Provider Orthopaedic Surgery Orthopaedic Surgery of the Spine
DX: M48.062 Spinal stenosis, lumbar region with neurogenic claudication (principal); M48.07 Spinal stenosis, lumbosacral region
CPT/HCPCS: 72148

== ENCOUNTER 2023-04-26 18:03 | Emergency (ER) | payer OTHER, SELFPAY ==
[2023-04-26] VITALS (11 sets, daily range): BP systolic 114–179; BP diastolic 67–83; PULSE 55–69; RESP 16–24; TEMP 36.4; O2SAT 95–99; BMI 22.4
--- NOTE | 2023-04-26 18:12 | DI.RAD.S_ITS ---
PROCEDURE: XR CHEST 1V INDICATIONS: chest pain TECHNIQUE: One view of the chest was acquired. COMPARISON: [facility], , CHEST 2 VIEW, 05/21/2012, 13:02. FINDINGS: Surgical changes and devices: Cervical spine fixation hardware is seen. Lungs and pleura: An incomplete inspiratory result is noted, causing a crowded appearance to the lung markings. No focal infiltrates are seen. No pneumothorax or significant pleural effusions are seen. Mediastinum: Mediastinal contours appear normal. Heart size is normal. Bones and chest wall: No suspicious bony lesions. Age-appropriate bony degenerative changes are seen. Overlying soft tissues appear unremarkable. IMPRESSION: Low lung volumes, without an acute abnormality seen by plain film. Postoperative and degenerative changes are seen. Dictated by: Casper Bucio M.D. on 04/26/2023 at 17:55 Approved by: Casper Bucio M.D. on 04/26/2023 at 17:55
[2023-04-26] MEDS: ASPIRIN 81 MG CHEW TAB 324 MG PO (18:18)
--- NOTE | 2023-04-26 18:29 | ED.CHESTPAIN ---
HPI - Chest Pain General Chief Complaint: Chest Pain Stated Complaint: Heart squeezing T-0 Time Seen by Provider: 04/26/23 18:16 History of Present Illness HPI narrative: 62-year-old woman with a history of hypertension, diabetes, hypothyroidism who presents with chest pain that started around 5:00 p.m. this evening while she and her were relaxing in the living room. She describes it as a wave of severe fatigue such that she felt she needed to lay down and then continuous waves pain radiating through her back associated with nausea but no diaphoresis or dyspnea. She did not notice any palpitations. She is never had cardiac issues before. On further questioning she notes that over the last 2 months she is had scattered episodes of minor pain in the right upper quadrant that had always resolved. She describes no nausea, vomiting, headaches, fever, chills, cough Related Data Home Medications Medication Instructions Recorded Confirmed cholecalciferol (vitamin D3) 50 4,000 iu PO Q DAY ##0 01/29/11 10/19/22 mcg (2,000 unit) capsule (Vitamin D3) cyanocobalamin (vitamin B-12) 500 500 mcg PO QDAY ##0 07/09/16 10/19/22 mcg tablet (Vitamin B-12) metformin 1,000 mg tablet 1,000 mg PO BID 07/01/18 10/19/22 semaglutide 7 mg tablet (Rybelsus) 7 mg PO DAILY 11/06/20 10/19/22 Previous Rx's Medication Instructions Recorded levothyroxine 50 mcg tablet 50 mcg PO QDAY #90 tabs 05/30/16 (Synthroid) albuterol sulfate 90 mcg/actuation 1 - 2 puff INH Q4HP PRN #1 ea 08/08/16 aerosol inhaler (Ventolin HFA) trazodone 100 mg tablet 200 mg (2 x 100 mg) PO HS #60 tabs 12/09/16 atorvastatin 40 mg tablet 40 mg PO QDAY #90 tabs 02/25/17 Lancet: Device units intradermal BID ##1 02/26/17 Lancets units intradermal BID ##60 02/26/17 lisinopril 20 mg tablet 20 mg PO QDAY #30 tabs 04/10/17 estradiol-norethindrone acet 0.5 1 tab PO Q DAY ##1 09/01/17 mg-0.1 mg tablet (Activella) Glucose: Home Monitoring Kit kit intradermal BID ##1 07/06/18 hydrocodone 5 mg-acetaminophen 325 1 tab PO Q6H PRN pain #10 tabs 09/18/21 mg tablet ondansetron 4 mg disintegrating 4 mg PO Q8H PRN nausea and 09/18/21 tablet vomiting #10 tabs benzonatate 100 mg capsule 100 mg PO TID PRN cough #20 caps 10/08/22 Allergies Allergy/AdvReac Type Severity Reaction Status Date / Time latex Allergy Mild Rash Verified 04/26/23 18:33 Penicillins [PENICILLINS] Allergy Mild RASH Verified 04/26/23 18:33 adhesive tape Allergy Unknown Rash Verified 04/26/23 18:33 Review of Systems Review of Systems Narrative: Pertinent positive and negative findings as per HPI Patient History Medical History (Updated 04/26/23 @ 21:59 by Zenaida Dean MD) Diabetes Hypertension Hypothyroidism (acquired) Mixed hyperlipidemia (01/16/11) Surgical History Status post breast biopsy History of third molar tooth extraction Status post ovarian cystectomy Status post endoscopy Status post colonoscopy Social History Smoking Status: Never smoker Smoking Status: Never smoker alcohol intake frequency: holidays/special occasions only Substance Use Type: does not use Exam Initial Vital Signs Initial Vital Signs: Vital Signs Temperature 97.6 F 04/26/23 18:13 Pulse Rate 67 04/26/23 18:13 Respiratory Rate 16 04/26/23 18:13 Blood Pressure 179/83 H 04/26/23 18:13 Pulse Oximetry 98 04/26/23 18:13 Oxygen Delivery Method Room Air 04/26/23 18:13 General: Healthy appearing, in no acute distress. Able to give a complete and coherent history. Well-nourished well-developed HEENT: Moist mucous membranes, normal sclera with reactive pupils, Neck: No JVD, supple, asymmetric thyroid right side larger than left. No thyroid bruits Respiratory: Lungs are clear to auscultation, no wheezing no rales no rhonchi. Full and symmetrical air movement Cardiac: Regular rate and rhythm no murmurs no bruits Abdomen: Soft, tender in the right upper quadrant over her gallbladder, no rebound or guarding, no flank pain. Skin: Warm and dry, no rashes Neurologic: Grossly neurologically intact with no obvious asymmetries or abnormalities Extremities: No trauma, well perfused, no lower extremity edema Psych: Cooperative, appropriate insight and affect Course Orders Ordered: ED Orders 04/26/23 18:12 XR chest 1V Stat EKG-12 Lead Stat 04/26/23 18:33 Complete Blood Count AUTO DIFF Stat Comprehensive Metabolic Panel Stat Lipase Stat Magnesium Stat PTT Partial Thromboplastin Emir Stat Prothrombin Time INR Stat Troponin & CK Cardiac Panel Stat 04/26/23 19:30 US abdomen limited Stat 04/26/23 20:18 Trop I [Troponin I] Stat 04/26/23 20:30 EKG-12 Lead Stat Discontinued Medications Aspirin (Aspirin 81 Mg Chew Tab) 324 mg PO NOW ONE Stop: 04/26/23 18:13 Last Admin: 04/26/23 18:18 Dose: 324 mg Documented By: [facility] Vital Signs Vital signs: Vital Signs - 8 hr 04/26/23 18:13 04/26/23 18:17 04/26/23 18:30 Temperature 97.6 F Pulse Rate 67 65 64 Respiratory Rate 16 20 Blood Pressure 179/83 H Pulse Oximetry 98 99 98 Oxygen Delivery Method Room Air Room Air 04/26/23 18:42 04/26/23 18:42 04/26/23 19:00 Temperature Pulse Rate 67 55 L Respiratory Rate 23 16 Blood Pressure 124/67 121/70 Pulse Oximetry 96 Oxygen Delivery Method Room Air 04/26/23 19:00 04/26/23 19:30 04/26/23 19:30 Temperature Pulse Rate 67 64 Respiratory Rate 22 17 Blood Pressure 146/83 H Pulse Oximetry 96 97 Oxygen Delivery Method 04/26/23 20:00 04/26/23 20:00 04/26/23 20:30 Temperature Pulse Rate 69 Respiratory Rate 24 Blood Pressure 121/74 114/69 Pulse Oximetry 96 Oxygen Delivery Method 04/26/23 20:30 04/26/23 21:00 04/26/23 21:00 Temperature Pulse Rate 68 67 Respiratory Rate 22 18 Blood Pressure 114/69 131/71 Pulse Oximetry 96 95 Oxygen Delivery Method 04/26/23 21:30 04/26/23 21:30 Temperature Pulse Rate 66 Respiratory Rate 24 Blood Pressure 143/69 H Pulse Oximetry 95 Oxygen Delivery Method MDM - Chest Pain Lab Data 04/26/23 18:33 04/26/23 18:33 Labs: Lab Results 04/26/23 04/26/23 Range/Units 18:33 20:18 WBC 6.5 (4.5-11.0) X10^3/uL RBC 4.08 (4.0-5.2) X10^6/uL Hgb 12.7 (12.0-16.0) g/dL Hct 36.7 (36-46) % MCV 90.0 (80-100) fL MCH 31.0 (26-34) PG MCHC 34.5 (30-36) % RDW 13.4 (11.6-14.8) % Plt Count 248 (150-400) X10^3/uL Neut % (Auto) 52.0 (50-75) % Lymph % (Auto) 38.7 (25-40) % Donley % (Auto) 6.7 (3-14) % Eos % (Auto) 1.7 L (2-4) % Baso % (Auto) 0.9 (0-2) % Neut # (Auto) 3400 (4251-5532) /uL Lymph # (Auto) 2500 (3647-7075) /uL Donley # (Auto) 400 (0-900) /uL Eos # (Auto) 100 (0-450) /uL Baso # (Auto) 100 (0-100) /uL PT 10.7 (9.4-12.5) SECONDS INR 0.9 (0.9-1.3) APTT 30 (25.1-36.5) SECONDS Sodium 138 (137-145) mmol/L Potassium 3.9 (3.4-5.1) mmol/L Chloride 101 (98-107) mmol/L Carbon Dioxide 26 (22-32) mmol/L BUN 15 (7-17) mg/dL Creatinine 0.56 (0.52-1.04) mg/dL Estimated GFR > 60 (>60) mL/min BUN/Creatinine Ratio 26.8 H (6-22) Glucose 93 (80-110) mg/dL Calcium 9.8 (8.4-10.2) mg/dL Magnesium 1.7 (1.6-2.3) mg/dL Total Bilirubin 0.5 (0.2-1.3) mg/dL AST 24 (14-36) IU/L ALT 25 (<35) IU/L Alkaline Phosphatase 48 (38-126) U/L Total Creatine Kinase 91 (30-135) U/L Troponin I < 0.012 < 0.012 (0.01-0.034) ng/mL Total Protein 7.1 (6.3-8.2) g/dL Albumin 4.5 (3.5-5.0) g/dL Globulin 2.6 (1.7-4.1) g/dL Albumin/Globulin Ratio 1.7 (1.0-2.8) Lipase 606 H (23-300) U/L MDM Narrative Medical decision making narrative: CC: Acute onset chest pain initially started with a wave of severe fatigue Complicating co-morbidities: Diabetes hypertension hyperlipidemia Data collected from: patient Medical records reviewed: 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 Prior ER visit in September of 2021 was for abdominal pain eventually diagnosed with pancreatitis however when she went home she developed more diarrhea acid her and was assuming she in fact had norovirus. There were no medication changes and this did all resolved spontaneously. Differential considered: Acute coronary syndrome, dissection, cardiomyopathy, pancreatitis, biliary neoplasm, acute cholecystitis, cholelithiasis Exam documented above, pertinent findings include: Pain completely resolved without intervention around 7:00 p.m.. On physical exam she still is moderately tender in the right upper quadrant with palpation but had not noticed that there was pain prior to palpation. Heart and lungs are benign. Lab Test results independently reviewed as above. Pertinent findings: CBC is unremarkable PT and PTT are appropriate Chemistries are reassuring Initial troponin is undetectable. Repeat troponin at 2:00 a.m. is also undetectable Lipase is minimally elevated at 606 Independently reviewed EKG: Sinus rhythm at a rate of 68. Normal intervals, normal axis. No acute ischemic changes Imaging studies independently reviewed: Chest x-ray is benign, no significant cardiomegaly, pneumothorax or pulmonary infiltrates Ultrasound of the abdomen does not suggest acute cholecystitis, gallstones or gallbladder sludge. There are no dilated ducts. Treatments: Aspirin is given on arrival Re-evaluations: Pain resolved at approximately 7:00 p.m. Discussion: 62-year-old woman with acute onset dramatic fatigued to the point that she needed to sit down and then chest pain radiating up through chest and through to her back. First and 2nd troponins are unremarkable. First and 2nd EKGs are reassuring. She did have some tenderness in the right upper quadrant and follow-up ultrasound did not show evidence of acute cholecystitis gallstones or gallbladder sludge. Blood work was otherwise unremarkable as was chest x-ray. At this point I do not have a full explanation for her symptoms but my suspicion for acute coronary syndrome as well as cholecystitis, severe pancreatitis, or common bile duct stone is low. As pain has entirely resolved I believe she is safe for discharge home at this time. We will ask her to follow up with her primary care physician and return to the ER if she has recurrent symptoms. Findings reviewed with the patient and her , questions are answered and she is safe for discharge Discharge Plan Departure Patient Disposition: Home Clinical Impression: Chest pain, non-cardiac Instructions: DI for Atypical Chest Pain Activity Restrictions/Additional Instructions: Thank you for coming in today I did not find any evidence for heart attack or heart attack like syndrome. You do not have a collapsed lung, pneumonia or alternate explanations for your symptoms in your chest. Under physical exam we both noted that you had a bit of tenderness in the right upper quadrant. An ultrasound does not show any evidence for gallstones, gallbladder disease or problems stones in the common bile duct. With the intermittent pain in the upper right quadrant of your abdomen over the last 2 months another possibility is certainly constipation. Please try some stool softeners or extra fiber to see if this influences that pain. I would recommend follow-up with your primary care provider particularly if you are having recurrent episodes of pain If you find that you are getting worse or develop any new symptoms, please feel free to return to the emergency department for further evaluation. Prescriptions: No Action benzonatate 100 mg capsule 100 mg PO TID PRN (Reason: cough) Qty: 20 0RF cholecalciferol (vitamin D3) [Vitamin D3] 2,000 UNIT capsule 4,000 iu PO Q DAY Qty: 0 levothyroxine [Synthroid] 50 MCG tablet 50 mcg PO QDAY Qty: 90 3RF cyanocobalamin (vitamin B-12) [Vitamin B-12] 500 MCG tablet 500 mcg PO QDAY Qty: 0 albuterol sulfate [Ventolin HFA] 90 MCG/PUFF HFA aerosol inhaler 1 - 2 puff INH Q4HP PRNQty: 1 2RF trazodone 100 MG tablet 200 mg PO HS Qty: 60 6RF atorvastatin 40 MG tablet 40 mg PO QDAY Qty: 90 3RF Lancet: Device Intradermal BID Qty: 1 0RF Lancets Intradermal BID Qty: 60 6RF lisinopril 20 MG tablet 20 mg PO QDAY Qty: 30 1RF estradiol-norethindrone acet [Activella] 0.5 MG/0.1 MG tablet 1 tab PO Q DAY Qty: 1 6RF Glucose: Home Monitoring Kit Intradermal BID Qty: 1 0RF metformin 1,000 mg tablet 1,000 mg PO BID Rybelsus 7 mg tablet 7 mg PO DAILY hydrocodone-acetaminophen 5-325 mg tablet 1 tab PO Q6H PRN (Reason: pain) Qty: 10 0RF ondansetron 4 mg tablet,disintegrating 4 mg PO Q8H PRN (Reason: nausea and vomiting) Qty: 10 0RF Referrals: Ashly Colorado MD [Primary Care Provider] - Stand Alone Forms: Patient Portal/API
[2023-04-26 18:40] LABS: Add Manual Diff / Slide Review NO; Basophils Absolute Auto 100 /uL (0-100); Basophils Percent Auto 0.9 % (0-2); Eosinophils Absolute Auto 100 /uL (0-450); Eosinophils Percent Auto 1.7 % (2-4); Hematocrit 36.7 % (36-46); Hemoglobin 12.7 g/dL (12.0-16.0); Lymphocytes Absolute Auto 2500 /uL (1100-4500); Lymphocytes Percent Auto 38.7 % (25-40); Mean Corpuscular HGB Conc 34.5 % (30-36); Monocytes Absolute Auto 400 /uL (0-900); Monocytes Percent Auto 6.7 % (3-14); Neutrophils Absolute Auto 3400 /uL (1500-7000); Platelet Count 248 X10^3/uL (150-400); Red Blood Cell Count 4.08 X10^6/uL (4.0-5.2); Red Cell Distribution Width 13.4 % (11.6-14.8); White Blood Cell Count 6.5 X10^3/uL (4.5-11.0)
[2023-04-26 18:48] LABS: INR 0.9 (0.9-1.3); Prothrombin Time 10.7 SECONDS (9.4-12.5)
[2023-04-26 18:50] LABS: PTT Partial Thromboplastin Tim 30 SECONDS (25.1-36.5)
--- NOTE | 2023-04-26 18:50 | PC.NURSE ---
Pt has a history of chest pain which she said was given a monitor at home for a week with no significant findings. She was told by her provider it may have been due to stress. Pt has had chest pain at rest which worsens to about a 7/10 pain, then decreases to a 3/10 pressure and remains present. She denies SOB. States slightly lightheaded.
[2023-04-26 18:54] LABS: Alanine Aminotransferase 25 IU/L (<35); Albumin 4.5 g/dL (3.5-5.0); Albumin Globulin Ratio 1.7 (1.0-2.8); Alkaline Phosphatase 48 U/L (38-126); Aspartate Aminotransferase 24 IU/L (14-36); BUN Creatinine Ratio 26.8 (6-22); Bilirubin Total 0.5 mg/dL (0.2-1.3); Blood Urea Nitrogen 15 mg/dL (7-17); Calcium 9.8 mg/dL (8.4-10.2); Carbon Dioxide 26 mmol/L (22-32); Chloride 101 mmol/L (98-107); Creatine Kinase 91 U/L (30-135); Estimated Glomerular Filt Rate > 60 mL/min (>60); Globulin 2.6 g/dL (1.7-4.1); Glucose 93 mg/dL (80-110); HEMOLYSIS < 15 (0-50); Lipase 606 U/L (23-300); Magnesium 1.7 mg/dL (1.6-2.3); Potassium 3.9 mmol/L (3.4-5.1); Sodium 138 mmol/L (137-145); Total Protein 7.1 g/dL (6.3-8.2)
[2023-04-26 19:05] LABS: Troponin I < 0.012 ng/mL (0.01-0.034)
--- NOTE | 2023-04-26 19:30 | DI.US.S_ITS ---
PROCEDURE: US ABDOMEN LIMITED INDICATIONS: galbladder and pancreatic imaging - let me know if need full TECHNIQUE: Real-time focused scanning was performed of the abdomen, with image documentation. COMPARISON: [facility], , US ABDOMEN LIMITED, 09/18/2021, 9:16. FINDINGS: The liver is normal in size and echotexture. The gallbladder is partially contracted but the gallbladder wall is not abnormally thickened and no stones or sludge is seen. The bile ducts are normal in caliber. The pancreas visualized is normal. Note is made of a right renal cyst measuring up to 2.9 cm. It appears simple. IMPRESSION: No evidence of acute cholecystitis or biliary distension. Dictated by: Garth Nelson M.D. on 04/26/2023 at 20:55 Approved by: Garth Nelson M.D. on 04/26/2023 at 20:56
[2023-04-26 20:58] LABS: Troponin I < 0.012 ng/mL (0.01-0.034)
== END 2023-04-26 22:21 | disposition home or self-care (01) ==
PROVIDERS: Emergency Provider Emergency Medicine; Family Provider Internal Medicine; PCP Internal Medicine
DX: R07.89 Other chest pain (principal); Z79.899 Other long term (current) drug therapy
CPT/HCPCS: 36415; 71045; 76705; 80053; 82550; 83690; 83735; 84484; 85025; 85610; 85730; 93005; 93010; 99284

== ENCOUNTER → 2023-05-10 08:22 | Outpatient (CLI) | payer OTHER, SELFPAY ==
[2023-05-10 09:36] LABS: BUN Creatinine Ratio 24.6 (6-22); Blood Urea Nitrogen 14 mg/dL (7-17); Calcium 9.5 mg/dL (8.4-10.2); Carbon Dioxide 27 mmol/L (22-32); Chloride 104 mmol/L (98-107); Cholesterol 152 mg/dL (140-199); Estimated Glomerular Filt Rate > 60 mL/min (>60); Glucose 93 mg/dL (80-110); HDL Cholesterol 62 mg/dL (40-60); HEMOLYSIS < 15 (0-50); LDL Cholesterol Calculated 71 mg/dL (<100); Potassium 3.6 mmol/L (3.4-5.1); Sodium 139 mmol/L (137-145); Triglycerides 97 mg/dL (35-150)
[2023-05-10 09:51] LABS: Hematocrit 37.4 % (36-46); Hemoglobin 12.9 g/dL (12.0-16.0); Mean Corpuscular HGB Conc 34.4 % (30-36); Mean Corpuscular Hemoglobin 31.6 PG (26-34); Mean Corpuscular Volume 91.8 fL (80-100); Platelet Count 237 X10^3/uL (150-400); Red Blood Cell Count 4.08 X10^6/uL (4.0-5.2); Red Cell Distribution Width 13.1 % (11.6-14.8); White Blood Cell Count 4.2 X10^3/uL (4.5-11.0)
[2023-05-10 09:53] LABS: Free T4, Direct Thyroxine 1.42 ng/dL (0.78-2.19)
[2023-05-10 09:54] LABS: Vitamin D 25 Hydroxy (D3) 60.3 ng/mL (30.0-100.0)
[2023-05-10 10:07] LABS: Thyroid Stimulating Hormone 1.11 uIU/mL (0.47-4.68)
[2023-05-10 10:18] LABS: Hemoglobin A1C% w Est Avg Glu 5.5 % (4.0-6.0)
[2023-05-10 10:25] LABS: Vitamin B12 431 pg/mL (239-931)
[2023-05-10 15:27] LABS: Creatinine Urine Random 119.5 mg/dL
[2023-05-10 15:31] LABS: Microalbumi Creatinin Ratio Ur 18.4 ug/mg CR (<30); Microalbumin Urine Random 2.2 mg/dL (0-1.6)
== END ==
PROVIDERS: Family Provider Internal Medicine; PCP Internal Medicine; Referring Provider Internal Medicine; Visit Provider Internal Medicine
DX: E11.9 Type 2 diabetes mellitus without complications (principal)
CPT/HCPCS: 36415; 80048; 80061; 82043; 82306; 82570; 82607; 83036; 84439; 84443; 85027

== ENCOUNTER → 2023-05-26 11:25 | Outpatient (CLI) | payer OTHER, SELFPAY ==
--- NOTE | 2023-05-26 11:26 | DI.CT.S_ITS ---
PROCEDURE: CT ABDOMEN PELVIS W CON INDICATIONS: Other chronic pancreatitis, since starting ozempic. TECHNIQUE: After the administration of intravenous contrast, axial sections acquired from the lung bases to the pubic symphysis. Coronal and sagittal reformats were performed. For radiation dose reduction, the following was used: automated exposure control, adjustment of mA and/or kV according to patient size. COMPARISON: None. FINDINGS: Image quality: Diagnostic. Lower Chest: No significant findings. ABDOMEN: Liver: No solid mass. Gallbladder: No radiopaque gallstones or wall thickening. Biliary ducts: No biliary dilation. Pancreas: No ductal dilation. Normal appearance, without divisum. No calcifications. Spleen: Size is within normal limits. Adrenal Glands: No adrenal nodules. Kidneys and Ureters: No hydronephrosis. No solid mass. No complex renal cystic lesion which requires follow up. Small burden of bilateral, punctate nonobstructing nephrolithiasis. Stomach and Bowel: Normal colonic caliber, without significant wall thickening. Gastric cardiac diverticulum Peritoneum: No abnormal intraperitoneal fluid. No free air. Ventral Wall: No hernia. Abdominal Nodes: No retroperitoneal or mesenteric adenopathy by size criteria. Vessels: Aorta and inferior vena cava are normal in size. PELVIS: Pelvic Organs: Unremarkable. Bladder: Unremarkable. Pelvic Nodes: No enlarged lymph nodes. Miscellaneous: No inguinal hernias are seen. Bones: No aggressive osseous abnormality. IMPRESSION: Normal appearance of the pancreas, without divisum, ductal dilation or calcifications. Dictated by: Alberto Galloway M.D. on 05/26/2023 at 13:12 Approved by: Alberto Galloway M.D. on 05/26/2023 at 13:20
== END ==
LOC: CT 11:25
PROVIDERS: Family Provider Internal Medicine; PCP Internal Medicine; Referring Provider Internal Medicine; Visit Provider Internal Medicine
DX: K86.1 Other chronic pancreatitis (principal)
CPT/HCPCS: 74177; Q9967

== ENCOUNTER 2023-08-19 13:38 | Emergency (ER) | payer OTHER, SELFPAY ==
[2023-08-19] VITALS (7 sets, daily range): BP systolic 117–175; BP diastolic 70–87; PULSE 68–92; RESP 18–28; TEMP 37.1; O2SAT 95–99; BMI 21.9
--- NOTE | 2023-08-19 13:53 | DI.CT.S_ITS ---
PROCEDURE: CT HEAD/BRAIN WO CON INDICATIONS: fall, hit back of head, + mid line tenderness. TECHNIQUE: Noncontrast 4.5 mm thick angled axial sections acquired from the foramen magnum to the vertex, with coronal and sagittal reformats. For radiation dose reduction, the following was used: automated exposure control, adjustment of mA and/or kV according to patient size. COMPARISON: [facility], MR, STROKE PROTOCOL, 05/27/2011, 16:47. [facility], CT, CT CERVICAL SPINE WO CON, 08/19/2023, 14:50. FINDINGS: Image quality: Diagnostic. CSF spaces: Basal cisterns are patent. No extra-axial fluid collections. The ventricles are symmetric in size and shape. Brain: No intracranial bleeds or masses. There is cerebral volume loss for age, with resultant ventricular and sulcal prominence. There are periventricular and deep white matter chronic small vessel ischemic changes. There is intracranial internal carotid artery atherosclerosis. Skull and face: Left periorbital soft tissue swelling is seen. Calvarium and visualized facial bones appear intact, without suspicious lesions. Sinuses: Visualized sinuses and mastoids are clear. Prior postoperative change, with bilateral antrectomy can be seen. IMPRESSION: No acute intracranial hemorrhage is seen. No acute intracranial pathology. Dictated by: Casper Bucio M.D. on 08/19/2023 at 14:02 Approved by: Casper Bucio M.D. on 08/19/2023 at 14:05
--- NOTE | 2023-08-19 13:53 | DI.CT.S_ITS ---
PROCEDURE: CT CERVICAL SPINE WO CON INDICATIONS: fall, hit back of head, + mid line tenderness. TECHNIQUE: Noncontrast 3 mm thick sections acquired from the skull base to the T4 level. Sagittal and coronal reformats were then constructed. For radiation dose reduction, the following was used: automated exposure control, adjustment of mA and/or kV according to patient size. COMPARISON: [facility], CT, CT HEAD/BRAIN WO CON, 08/19/2023, 14:50. [facility], MR, C-SPINE WITHOUT CONTRAST, 06/28/2015, 15:47. FINDINGS: Image quality: Excellent. Bones: No fractures or dislocations. Visualized superior ribs are intact. Anterior fixation hardware can be seen at the C5-C6 level, with a disc spacer at C5-C6. No findings of hardware failure or hardware loosening are seen. Bridging anterior osteophytes can be seen at C4-C5 and at C6-C7. Moderate disc space narrowing can be seen at C4-C5. Milder degenerative changes are seen elsewhere. Soft tissues: Prevertebral soft tissues are normal in thickness. No paravertebral hematomas. No apical pneumothoraces. IMPRESSION: Negative for acute fracture. Intact appearing C5-C6 postoperative hardware. There are degenerative changes seen, which are overall worst at the C4-C5 level. Dictated by: Casper Bucio M.D. on 08/19/2023 at 14:05 Approved by: Casper Bucio M.D. on 08/19/2023 at 14:07
[2023-08-19] MEDS: LORazepam 0.5 MG TABLET PO (14:05)
[2023-08-19] MEDS: ALBUTEROL 2.5 MG/3 ML NEB (ADULT) INH (14:07)
[2023-08-19] MEDS: HYDROCODONE/ACET 5/325 TABLET 2 TAB PO (14:34)
--- NOTE | 2023-08-19 15:21 | PC.NURSE ---
late entry: Patient c/o not being able to speak and feeling like something is wrong, numbness feeling on her right hand getting worse. 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 patient shaking, worse on left side. Nurse to CT for preliminary reading. patient observed holding very still for CT scan. patient on VS machine during stay, VSS.
--- NOTE | 2023-08-19 15:58 | ED_ITS ---
HPI - Fall General Chief Complaint: Fall Stated Complaint: Fall, Head Injury Time Seen by Provider: 08/19/23 14:30 Source: patient Mode of arrival: Ambulatory History of Present Illness HPI Narrative: Patient here with . Had ground level fall. Is not on blood thinners. Complains of neck and facial/head injury. Patient was raking leaves today. She states she should have put a lid on this container before she moved it but she did not, and she tripped over it and fell to the ground falling forward. Denies any other injuries. Patient does have history of cervical spine surgery. Denies any other injuries. Pain does radiate to her left arm. Patient feels very anxious. Hard C-collar placed on arrival. Related Data Home Medications Medication Instructions Recorded Confirmed cholecalciferol (vitamin D3) 50 4,000 iu PO Q DAY ##0 01/29/11 10/19/22 mcg (2,000 unit) capsule (Vitamin D3) cyanocobalamin (vitamin B-12) 500 500 mcg PO QDAY ##0 07/09/16 10/19/22 mcg tablet (Vitamin B-12) metformin 1,000 mg tablet 1,000 mg PO BID 07/01/18 10/19/22 semaglutide 7 mg tablet (Rybelsus) 7 mg PO DAILY 11/06/20 10/19/22 Previous Rx's Medication Instructions Recorded levothyroxine 50 mcg tablet 50 mcg PO QDAY #90 tabs 05/30/16 (Synthroid) albuterol sulfate 90 mcg/actuation 1 - 2 puff INH Q4HP PRN #1 ea 08/08/16 aerosol inhaler (Ventolin HFA) trazodone 100 mg tablet 200 mg (2 x 100 mg) PO HS #60 tabs 12/09/16 atorvastatin 40 mg tablet 40 mg PO QDAY #90 tabs 02/25/17 Lancet: Device units intradermal BID ##1 02/26/17 Lancets units intradermal BID ##60 02/26/17 lisinopril 20 mg tablet 20 mg PO QDAY #30 tabs 04/10/17 estradiol-norethindrone acet 0.5 1 tab PO Q DAY ##1 09/01/17 mg-0.1 mg tablet (Activella) Glucose: Home Monitoring Kit kit intradermal BID ##1 07/06/18 hydrocodone 5 mg-acetaminophen 325 1 tab PO Q6H PRN pain #10 tabs 09/18/21 mg tablet ondansetron 4 mg disintegrating 4 mg PO Q8H PRN nausea and 09/18/21 tablet vomiting #10 tabs benzonatate 100 mg capsule 100 mg PO TID PRN cough #20 caps 10/08/22 hydrocodone 5 mg-acetaminophen 325 1 tab PO Q6H PRN pain #12 tabs 08/19/23 mg tablet Allergies Allergy/AdvReac Type Severity Reaction Status Date / Time latex Allergy Mild Rash Verified 08/19/23 13:46 Penicillins [PENICILLINS] Allergy Mild RASH Verified 08/19/23 13:46 adhesive tape Allergy Unknown Rash Verified 08/19/23 13:46 Review of Systems Review of Systems Narrative: GENERAL: negative chills, fatigue, malaise, fever, sweats. HEENT: negative sinus pain, ear pain, sore throat RESPIRATORY: negative dyspnea, cough CARDIOVASCULAR: negative chest pain, palpitations GASTROINTESTINAL: negative nausea, vomiting, abdominal pain : negative dysuria, frequency, hematuria MUSCULOSKELETAL: Positive neck/muscle or bony pain SKIN: negative rash, skin lesions, positive skin wound NEUROLOGIC: negative weakness, numbness ROS Unobtainable: All systems reviewed & are unremarkable except as noted in HPI and below Patient History Medical History Diabetes Hypertension Hypothyroidism (acquired) Mixed hyperlipidemia (01/16/11) Surgical History Status post breast biopsy History of third molar tooth extraction Status post ovarian cystectomy Status post endoscopy Status post colonoscopy Social History Smoking Status: Never smoker Smoking Status: Never smoker alcohol intake frequency: holidays/special occasions only Substance Use Type: does not use Exam Narrative Exam Narrative: GENERAL: in no distress, not toxic not dyspneic HEAD: Normocephalic. Bruising to the left cheek/periorbital edema small skin abrasion to the left muslim no foreign body seen on the abrasion. EYES: Pupils equal round ENT: Mucous membranes moist. NECK: Trachea midline. C-collar placed CARDIOVASCULAR: Regular rate and rhythm RESPIRATORY: Clear to auscultation. Breath sounds equal bilaterally. No wheezes, rales, or rhonchi. GASTROINTESTINAL: Abdomen soft, non-tender EXTREMITIES: No gross deformities. Nontender bilateral shoulders elbows wrists pelvis hips knees and ankles BACK: No flank tenderness. NEURO: AOx4. 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 SKIN: Warm and dry PSYCH: Not anxious, is cooperative Initial Vital Signs Initial Vital Signs: Vital Signs Temperature 98.7 F 08/19/23 13:46 Pulse Rate 92 H 08/19/23 13:46 Respiratory Rate 28 H 08/19/23 13:46 Blood Pressure 164/87 H 08/19/23 13:46 Pulse Oximetry 98 08/19/23 13:46 Oxygen Delivery Method Room Air 08/19/23 13:46 Course Orders Ordered: Discontinued Medications Hydrocodone Bitart/Acetaminophen (Hydrocodone/Acet 5/325 Tablet) 2 tab PO NOW ONE Stop: 08/19/23 14:31 Last Admin: 08/19/23 14:34 Dose: 2 tab Documented By: LANCE Albuterol (Albuterol Hfa Mdi 60 Puff/8 Gm Inhaler) 2 puff INH NOW ONE Stop: 08/19/23 13:55 Last Admin: 08/19/23 14:06 Dose: Not Given Documented By: LANCE Albuterol (Albuterol 2.5 Mg/3 Ml Neb (Adult)) 2.5 mg INH NOW ONE Stop: 08/19/23 14:07 Last Admin: 08/19/23 14:07 Dose: 2.5 mg Documented By: LANCE Bacitracin (Bacitracin Oint 0.9 Gm Pckt) 1 applic TOP NOW ONE Stop: 08/19/23 15:58 Last Admin: 08/19/23 16:08 Dose: 1 applic Documented By: LANCE Lorazepam (Lorazepam 0.5 Mg Tablet) 0.5 mg PO NOW ONE Stop: 08/19/23 13:56 Last Admin: 08/19/23 14:05 Dose: 0.5 mg Documented By: LANCE Vital Signs Vital signs: Vital Signs - 8 hr 08/19/23 13:46 Temperature 98.7 F Pulse Rate 92 H Respiratory Rate 28 H Blood Pressure 164/87 H Pulse Oximetry 98 Oxygen Delivery Method Room Air MDM - Fall Imaging Data CT scan - head: Radiologist's Impression: [address] [address] [address] Scan Report Signed Patient: Gaby Greer MR#: [id number] : 1960 Acct:[id number] Age/Sex: 62 / F Date of Service: 08/19/23 Loc: ED Accession Number: [id number] Procedure: CT head/brain wo con Ordering Provider: Ayden Cartagena MD PROCEDURE: CT HEAD/BRAIN WO CON INDICATIONS: fall, hit back of head, + mid line tenderness. TECHNIQUE: Noncontrast 4.5 mm thick angled axial sections acquired from the foramen magnum to the vertex, with coronal and sagittal reformats. For radiation dose reduction, the following was used: automated exposure control, adjustment of mA and/or kV according to patient size. COMPARISON: [facility], MR, STROKE PROTOCOL, 05/27/2011, 16:47. [facility], CT, CT CERVICAL SPINE WO CON, 08/19/2023, 14:50. FINDINGS: Image quality: Diagnostic. CSF spaces: Basal cisterns are patent. No extra-axial fluid collections. The ventricles are symmetric in size and shape. Brain: No intracranial bleeds or masses. There is cerebral volume loss for age, with resultant ventricular and sulcal prominence. There are periventricular and deep white matter chronic small vessel ischemic changes. There is intracranial internal carotid artery atherosclerosis. Skull and face: Left periorbital soft tissue swelling is seen. Calvarium and visualized facial bones appear intact, without suspicious lesions. Sinuses: Visualized sinuses and mastoids are clear. Prior postoperative change, with bilateral antrectomy can be seen. IMPRESSION: No acute intracranial hemorrhage is seen. No acute intracranial pathology. Dictated by: Casper Bucio M.D. on 08/19/2023 at 14:02 Approved by: Casper Bucio M.D. on 08/19/2023 at 14:05 CT - cervical spine: Radiologist's Impression: [address] [address] [address] Scan Report Signed Patient: Gaby Greer MR#: [id number] : 1960 Acct:[id number] Age/Sex: 62 / F Date of Service: 08/19/23 Loc: ED Accession Number: [id number] Procedure: CT cervical spine wo con Ordering Provider: Ayden Cartagena MD PROCEDURE: CT CERVICAL SPINE WO CON INDICATIONS: fall, hit back of head, + mid line tenderness. TECHNIQUE: Noncontrast 3 mm thick sections acquired from the skull base to the T4 level. Sagittal and coronal reformats were then constructed. For radiation dose reduction, the following was used: automated exposure control, adjustment of mA and/or kV according to patient size. COMPARISON: [facility], CT, CT HEAD/BRAIN WO CON, 08/19/2023, 14:50. [facility], MR, C-SPINE WITHOUT CONTRAST, 06/28/2015, 15:47. FINDINGS: Image quality: Excellent. Bones: No fractures or dislocations. Visualized superior ribs are intact. Anterior fixation hardware can be seen at the C5-C6 level, with a disc spacer at C5-C6. No findings of hardware failure or hardware loosening are seen. Bridging anterior osteophytes can be seen at C4-C5 and at C6-C7. Moderate disc space narrowing can be seen at C4-C5. Milder degenerative changes are seen elsewhere. Soft tissues: Prevertebral soft tissues are normal in thickness. No paravertebral hematomas. No apical pneumothoraces. IMPRESSION: Negative for acute fracture. Intact appearing C5-C6 postoperative hardware. There are degenerative changes seen, which are overall worst at the C4-C5 level. Dictated by: Casper Bucio M.D. on 08/19/2023 at 14:05 Approved by: Casper Bucio M.D. on 08/19/2023 at 14:07 [facility] Narrative Medical decision making narrative: Patient here with . Had ground level fall. Is not on blood thinners. C omplains of neck and facial/head injury. Patient was raking leaves today. She states she should have put a lid on this container before she moved it but she did not, and she tripped over it and fell to the ground falling forward. Denies any other injuries. Patient does have history of cervical spine surgery. Denies any other injuries. Pain does radiate to her left arm. Patient feels very anxious. Hard C-collar placed on arrival. After history and exam CT head [facility] [place] for pain, wound care MDM Medical records reviewed: No recent visit for this complaint Differential considered: Includes but not limited to facial fracture intracranial bleed skull fracture concussion skin tear Lab Test results independently reviewed as above. Pertinent findings: None indicated Imaging studies independently reviewed: CT cervical spine no acute finding, CT head left periorbital swelling without fracture Consultations: None indicated Treatments: Ativan/[place] Re-evaluations: 4:00 p.m.. Review results with patient and family. Patient feels much better. C-collar has been removed. CT C-spine is reassuring. There is mild bilateral paracervical muscle tenderness with limited range of motion. However patient states feels much better. Return precautions reviewed with patient nontoxic at discharge. They desire discharge home Discussion: Appropriate for discharge home. Exam and imaging studies are reassuring. No blood work indicated. Return precautions reviewed. Patient otherwise neurologically intact. Pain is controlled. Short course of pain medication appropriate for patient's injury. Wound care instructions provided for abrasion/skin tear. Family at bedside to drive. Not toxic at discharge Diagnosis: Concussion/facial contusion/cervical strain Discharge Plan Departure Patient Disposition: Home Clinical Impression: Concussion with loss of consciousness Qualifiers: Encounter type: initial encounter Qualified Code(s): S06.0X9A - Concussion with loss of consciousness of unspecified duration, initial encounter Contusion of face Qualifiers: Encounter type: initial encounter Qualified Code(s): S00.83XA - Contusion of other part of head, initial encounter Instructions: DI for Concussion, DI for Contusion, DI for Cervical Muscle Strain, DI for Closed Head Injury Activity Restrictions/Additional Instructions: No driving or operating machinery today or when taking prescribed pain medication. CT scan imaging is reassuring. No fractures were seen. However you did likely strain your neck when you fell. There is bruising to the face from your injury. Please clean the skin injury to the left temporal area daily with warm soap and water and apply thin layer of topical antibiotic. See family doctor within a week for re-evaluation. Return if worse if any questions or concerns. Please read the discharge instructions/information about your i njuries. Prescriptions: New hydrocodone-acetaminophen 5-325 mg tablet 1 tab PO Q6H PRN (Reason: pain) Qty: 12 0RF No Action benzonatate 100 mg capsule 100 mg PO TID PRN (Reason: cough) Qty: 20 0RF cholecalciferol (vitamin D3) [Vitamin D3] 2,000 UNIT capsule 4,000 iu PO Q DAY Qty: 0 levothyroxine [Synthroid] 50 MCG tablet 50 mcg PO QDAY Qty: 90 3RF cyanocobalamin (vitamin B-12) [Vitamin B-12] 500 MCG tablet 500 mcg PO QDAY Qty: 0 albuterol sulfate [Ventolin HFA] 90 MCG/PUFF HFA aerosol inhaler 1 - 2 puff INH Q4HP PRNQty: 1 2RF trazodone 100 MG tablet 200 mg PO HS Qty: 60 6RF atorvastatin 40 MG tablet 40 mg PO QDAY Qty: 90 3RF Lancet: Device Intradermal BID Qty: 1 0RF Lancets Intradermal BID Qty: 60 6RF lisinopril 20 MG tablet 20 mg PO QDAY Qty: 30 1RF estradiol-norethindrone acet [Activella] 0.5 MG/0.1 MG tablet 1 tab PO Q DAY Qty: 1 6RF Glucose: Home Monitoring Kit Intradermal BID Qty: 1 0RF metformin 1,000 mg tablet 1,000 mg PO BID Rybelsus 7 mg tablet 7 mg PO DAILY hydrocodone-acetaminophen 5-325 mg tablet 1 tab PO Q6H PRN (Reason: pain) Qty: 10 0RF ondansetron 4 mg tablet,disintegrating 4 mg PO Q8H PRN (Reason: nausea and vomiting) Qty: 10 0RF Referrals: Ashly Colorado MD [Primary Care Provider] - Stand Alone Forms: Patient Portal/API
[2023-08-19] MEDS: BACITRACIN OINT 0.9 GM PCKT 1 APPLIC TOP (16:08)
== END 2023-08-19 16:19 | disposition home or self-care (01) ==
PROVIDERS: Emergency Provider Emergency Medicine; Family Provider Internal Medicine; PCP Internal Medicine
DX: S06.0X9A Concussion with loss of consciousness of unspecified duration, initial encounter (principal); S00.83XA Contusion of other part of head, initial encounter; S16.1XXA Strain of muscle, fascia and tendon at neck level, initial encounter; W01.0XXA Fall on same level from slipping, tripping and stumbling without subsequent striking against object, initial encounter; Z79.899 Other long term (current) drug therapy
CPT/HCPCS: 70450; 72125; 99284; A9270; J7613

== ENCOUNTER → 2023-09-29 08:27 | Outpatient (CLI) | payer OTHER, SELFPAY ==
--- NOTE | 2023-09-29 08:28 | DI.MG.S_ITS ---
BILATERAL DIGITAL SCREENING MAMMOGRAM 3D/2D WITH CAD: 09/29/2023 CLINICAL: Routine screening. Family history of breast cancer. Comparison is made to exams dated: 09/27/2022 mammogram, 09/25/2021 mammogram - [facility], 02/28/2021 mammogram, and 06/15/2019 mammogram - [facility]. There are scattered areas of fibroglandular density in both breasts (category b / 25%-50% glandular tissue). Current study was also evaluated with a Computer Aided Detection (CAD) system. There are benign post operative findings and biopsy clip in the right breast. No significant masses, calcifications, or other findings are seen in either breast. There has been no significant interval change. IMPRESSION: BENIGN There is no mammographic evidence of malignancy. A 1 year screening mammogram is recommended. Based on Tyrer-Cuzick model (a risk assessment model), the patient's lifetime risk is 29.2% and her 10 year risk is 12.8%. If a patient has an elevated risk, a more comprehensive evaluation should be considered and/or a referral to a genetic counselor. The [place] [employer] [employer], [place] [employer], and NCCN Guidelines advise the consideration of Breast MRI as an adjunct to screening mammography in patients whose Lifetime risk to develop breast cancer is 20% or higher. This exam was interpreted at Station ID: [id number]. NOTE: For mammograms, a report in lay terms will be sent to the patient. Approximately 15% of breast malignancies will not be visualized mammographically. In the management of a palpable breast mass, a negative mammogram must not discourage biopsy of a clinically suspicious lesion. Electronically Signed By: Duncan carreon/brittni:09/29/2023 12:36:44 letter sent: Normal Exam ACR BI-RADS Category 2: Benign Finding(s) 3342F
== END ==
PROVIDERS: Family Provider Internal Medicine; PCP Internal Medicine; Referring Provider Internal Medicine; Visit Provider Internal Medicine
DX: Z12.31 Encounter for screening mammogram for malignant neoplasm of breast (principal); Z80.3 Family history of malignant neoplasm of breast; R92.323 Mammographic fibroglandular density, bilateral breasts
CPT/HCPCS: 77063; 77067

== ENCOUNTER → 2023-10-28 07:36 | Outpatient (CLI) | payer OTHER, SELFPAY ==
[2023-10-28 09:03] LABS: Hematocrit 35.8 % (36-46); Hemoglobin 12.3 g/dL (12.0-16.0); Mean Corpuscular HGB Conc 34.5 % (30-36); Mean Corpuscular Hemoglobin 31.5 PG (26-34); Mean Corpuscular Volume 91.3 fL (80-100); Platelet Count 244 X10^3/uL (150-400); Red Blood Cell Count 3.92 X10^6/uL (4.0-5.2); Red Cell Distribution Width 13.5 % (11.6-14.8); White Blood Cell Count 4.7 X10^3/uL (4.5-11.0)
[2023-10-28 09:06] LABS: Alanine Aminotransferase 26 IU/L (<35); Albumin 4.2 g/dL (3.5-5.0); Albumin Globulin Ratio 1.8 (1.0-2.8); Alkaline Phosphatase 50 U/L (38-126); Aspartate Aminotransferase 23 IU/L (14-36); BUN Creatinine Ratio 20.6 (6-22); Bilirubin Total 0.5 mg/dL (0.2-1.3); Blood Urea Nitrogen 14 mg/dL (7-17); Calcium 9.4 mg/dL (8.4-10.2); Carbon Dioxide 29 mmol/L (22-32); Chloride 105 mmol/L (98-107); Cholesterol 168 mg/dL (140-199); Estimated Glomerular Filt Rate > 60 mL/min (>60); Globulin 2.4 g/dL (1.7-4.1); Glucose 96 mg/dL (80-110); HDL Cholesterol 81 mg/dL (40-60); HEMOLYSIS < 15 (0-50); LDL Cholesterol Calculated 70 mg/dL (<100); Lipase 216 U/L (23-300); Potassium 4.2 mmol/L (3.4-5.1); Sodium 137 mmol/L (137-145); Total Protein 6.6 g/dL (6.3-8.2); Triglycerides 84 mg/dL (35-150)
[2023-10-28 09:14] LABS: Hemoglobin A1C% w Est Avg Glu 5.5 % (4.0-6.0)
== END ==
LOC: LAB 07:37
PROVIDERS: Family Provider Internal Medicine; PCP Internal Medicine; Referring Provider Internal Medicine; Visit Provider Internal Medicine
DX: E11.9 Type 2 diabetes mellitus without complications (principal)
CPT/HCPCS: 36415; 80053; 80061; 82043; 82570; 83036; 83690; 84436; 84443; 85027

== ENCOUNTER → 2024-03-31 14:52 | Outpatient (CLI) | payer OTHER, SELFPAY ==
[2024-03-31 15:34] LABS: Hematocrit 38.8 % (36-46); Mean Corpuscular HGB Conc 33.5 % (30-36); Mean Corpuscular Hemoglobin 30.8 PG (26-34); Mean Corpuscular Volume 91.7 fL (80-100); Platelet Count 271 X10^3/uL (150-400); Red Blood Cell Count 4.23 X10^6/uL (4.0-5.2); Red Cell Distribution Width 13.9 % (11.6-14.8); White Blood Cell Count 5.9 X10^3/uL (4.5-11.0)
[2024-03-31 15:42] LABS: Hemoglobin A1C% w Est Avg Glu 5.7 % (4.0-6.0)
[2024-03-31 16:00] LABS: Alanine Aminotransferase 30 IU/L (<35); Albumin 4.6 g/dL (3.5-5.0); Albumin Globulin Ratio 1.8 (1.0-2.8); Alkaline Phosphatase 48 U/L (38-126); Aspartate Aminotransferase 28 IU/L (14-36); BUN Creatinine Ratio 20.5 (6-22); Bilirubin Total 0.3 mg/dL (0.2-1.3); Blood Urea Nitrogen 15 mg/dL (7-17); Calcium 10.2 mg/dL (8.4-10.2); Carbon Dioxide 29 mmol/L (22-32); Chloride 102 mmol/L (98-107); Estimated Glomerular Filt Rate > 60 mL/min (>60); Globulin 2.6 g/dL (1.7-4.1); Glucose 99 mg/dL (80-110); HEMOLYSIS < 15 (0-50); Lipase 110 U/L (23-300); Potassium 4.3 mmol/L (3.4-5.1); Sodium 137 mmol/L (137-145); Total Protein 7.2 g/dL (6.3-8.2)
[2024-03-31 16:49] LABS: Vitamin B12 562 pg/mL (239-931)
[2024-03-31 21:07] LABS: Neutrophils Absolute Manual 3245 /uL (3000-5900); RBC Morphology Norm; Total Cells Counted 100
== END ==
LOC: LAB 14:54
PROVIDERS: Family Provider Internal Medicine; PCP Internal Medicine; Referring Provider Internal Medicine; Visit Provider Internal Medicine
DX: E11.9 Type 2 diabetes mellitus without complications (principal); K80.50 Calculus of bile duct without cholangitis or cholecystitis without obstruction
CPT/HCPCS: 36415; 80053; 82607; 83036; 83690; 85025

== ENCOUNTER → 2024-07-01 15:46 | Outpatient (CLI) | payer OTHER, SELFPAY ==
--- NOTE | 2024-07-01 15:48 | DI.RAD.S_ITS ---
PROCEDURE: XR KNEE RT 3V INDICATIONS: Right knee strain TECHNIQUE: 3 views of the knee were acquired. COMPARISON: None. FINDINGS: Bones: No fractures or dislocations. Mild tricompartmental osteoarthritic changes with osteophytosis and mild medial compartment joint space narrowing. No suspicious bony lesions. Soft tissues: Small joint effusion. No suspicious soft tissue calcifications. IMPRESSION: No acute osseous abnormality. Small knee joint effusion. If pain persists with conservative management, consider repeat x-ray in 10-14 days or cross-sectional imaging. Mild osteoarthritic changes of the right knee. Dictated by: Too Chamorro M.D. on 07/02/2024 at 16:19 Approved by: Too Chamorro M.D. on 07/02/2024 at 16:19
== END ==
LOC: RAD 15:47
PROVIDERS: Family Provider Internal Medicine; PCP Internal Medicine; Referring Provider Nurse Practitioner Family; Visit Provider Nurse Practitioner Family
DX: S86.911A Strain of unspecified muscle(s) and tendon(s) at lower leg level, right leg, initial encounter (principal); X58.XXXA Exposure to other specified factors, initial encounter; M25.461 Effusion, right knee
CPT/HCPCS: 73562

== ENCOUNTER → 2024-07-18 13:08 | Outpatient (CLI) | payer OTHER, SELFPAY ==
--- NOTE | 2024-07-18 13:09 | DI.MRI.S_ITS ---
PROCEDURE: MR KNEE RT WO CON INDICATIONS: tear of medial meniscus of rt knee TECHNIQUE: Noncontrast sagittal PD fast spin echo and T2 fast spin echo with fat saturation, sagittal 3-D FLASH with fat saturation; coronal T1 spin echo and PD fast spin echo with fat saturation, and axial PD fast spin echo with fat saturation through the knee. COMPARISON: [facility], CR, XR KNEE RT 3V, 07/01/2024, 15:44. [facility], CR, XR KNEE STANDING BILATERAL, 07/15/2024, 9:43. FINDINGS: Image quality: Excellent. Anterior cruciate ligament: Intact. Posterior cruciate ligament: Intact. Medial collateral ligament: Mild edema adjacent to the medial collateral ligament may be secondary to a low-grade sprain or reactive to the adjacent meniscal tear. Lateral collateral ligament: Intact. Medial meniscus: Complex tearing of the medial meniscus. A horizontal oblique component is seen at the posterior horn extending to the inner third of the tibial articular surface. There is an inferiorly displaced flap component at the meniscal body with tissue extending into the medial tibial gutter. Lateral meniscus: Intact. Medial and lateral tendons: The semimembranosus tendon insertions appear intact. Visualized portions of the pes anserinus tendons appear normal. The popliteus tendon is intact. Iliotibial band appears normal. Anterior structures: The quadriceps and patellar tendons appear intact. Congenitally shallow trochlear groove with lateral patellar tilting but no significant subluxation. No edema in the infrapatellar fat pad. Bones: No bone marrow contusions or fractures. Mild edema in the medial femoral condyle and medial tibial plateau adjacent to the meniscal tear is likely reactive versus secondary to an osseous contusion. Medial femorotibial cartilage: Mild partial-thickness cartilage irregularity in the weight-bearing portion.. Lateral femorotibial cartilage: Mild partial-thickness cartilage irregularity at the posterior weight-bearing portion of the lateral tibial plateau. Patellofemoral cartilage: Mild to moderate partial-thickness cartilage irregularity at the medial and lateral patellar facets and trochlear groove. Soft tissues: Small joint effusion. Small medial popliteal cyst. Visualized musculature is normal in bulk. IMPRESSION: 1. Complex tearing of the medial meniscus with a horizontal oblique component at the posterior horn extending to the inner third of the tibial articular surface as well as an inferiorly displaced meniscal flap component at the meniscal body with tissue extending into the medial tibial gutter. 2. Grade 1 sprain of the proximal medial collateral ligament. 3. Tricompartmental grade 2 chondromalacia. 4. Small joint effusion. Small medial popliteal cyst. Approved by: Francisco Hdz M.D. on 07/19/2024 at 9:46
== END ==
PROVIDERS: Family Provider Internal Medicine; PCP Internal Medicine; Referring Provider Orthopaedic Surgery Foot and Ankle Surgery; Visit Provider Orthopaedic Surgery Foot and Ankle Surgery
DX: S83.231A Complex tear of medial meniscus, current injury, right knee, initial encounter (principal); S83.411A Sprain of medial collateral ligament of right knee, initial encounter; M22.41 Chondromalacia patellae, right knee; M25.461 Effusion, right knee; M71.21 Synovial cyst of popliteal space [Baker], right knee; X58.XXXA Exposure to other specified factors, initial encounter
CPT/HCPCS: 73721